=== PATIENT | female | born 1955 | race Caucasian/White ===

== ENCOUNTER 2016-02-16 07:57 | Day surgery (SDC) | payer MEDICARE ==
[2016-02-11 15:28] VITALS: BMI 26.1
[2016-02-16] MEDS: LACTATED RINGERS 1,000 ML IV SCH ×4 (08:05→09:38)
[2016-02-16] MEDS ORDERED: TRIAMCINOLONE ACETONIDE 40 MG/ML 1 ML VIAL ONE (08:39)
[2016-02-16] MEDS ORDERED: BUPIVACAINE (PF) 0.75% 30 ML VIAL ONE (08:39)
[2016-02-16 09:09] VITALS: TEMP 97.8
--- NOTE | 2016-02-16 10:00 | P.PCN ---
Date of Procedure: 02/16/16 Procedure(s) Performed: Preoperative diagnoses= 1-myofascial pain syndrome cervical area. 2-failed back surgery syndrome lumbar area Postoperative diagnoses= same as preoperative diagnosis. Procedure= trigger point injections and cervical paravertebral muscles and suprascapular muscles bilaterally, (total of 9 trigger point injected) Anesthesia= none Estimated blood loss=minimal. Procedure indication= the patient had a history of severe chronic neck pain, diagnosed with myofascial pain syndrome and patient here to have trigger point injections, Procedure description= the patient was seen and identified in the preoperative holding area, risks and benefits and alternative of the procedure and possible complications discussed with the patient, and he agreed with the preceding, patient signed the consent, an IV was started, and vital signs were monitored and were stable throughout the procedure, patient was placed in the sitting position or table and the cervical and shoulder blades area was prepped and draped with a sterile fashion, vital signs were closely monitored during the procedure, then using 25-gauge needles the shoulder trigger point that is identified in the preop holding area, total of 9 triggerpoints 3 on the right side cervical paravertebral muscles, and 5 on the left side cervical paravertebral muscles and left suprascapular muscle, each of the trigger points injected with 2 ml of the mixture , total of 18 ML of Marcaine 0.75% mixed with 40 mg of Kenalog, and 2 mL of the mixture injected ,at each trigger point , after negative aspiration and there was no paresthesia during the injection Patient tolerated the procedure well without any complication, The patient returned to supine position after the neck was cleaned and a Band- Aid applied, the patient transported to recovery room in stable condition and he was monitored for 30 minutes before he was discharged home and then patient was reexamined before going home and patient was discharged in stable condition and patient will follow up with the pain clinic in a few weeks
[2016-02-16] MEDS ORDERED: IV FLUID CONTINUATION 1,000 ML IV ONE (10:20)
[2016-02-16 10:34] VITALS: BP 149/71; PULSE 68; RESP 18
== END 2016-02-16 10:22 | disposition home or self-care (01) ==
LOC: ORPAIN 07:57
PROVIDERS: ATTEND Specialist
DX: M79.1 Myalgia (principal); M96.1 Postlaminectomy syndrome, not elsewhere classified; G89.29 Other chronic pain
CPT/HCPCS: 20553; J3301; 20552

== ENCOUNTER → 2016-03-16 | Day surgery (SDC) | payer MEDICARE ==
[2016-03-09 15:50] VITALS: BMI 27.4
[2016-03-16 12:58] VITALS: BP 153/92; PULSE 72; RESP 16; TEMP 99.2
--- NOTE | 2016-03-16 13:38 | P.PN ---
Progress Note - Text This is a 60-year-old female with an intrathecal Dilaudid pump to treat her chronic mid and lower back pain. The patient's pain has been tolerated with an intrathecal Dilaudid dose of 0.8 mg a day with a combination of clonidine. The patient denies any new neurologic symptoms no neurologic changes in the bowel or bladder functions. She also takes Percocet, Flexeril and for tear in general to help control her pain. She denies any suicidal thoughts she does not look oversedated. I will do a pump refill on her today and we will refill her prescriptions and then we'll see her for reevaluation 3 months from now.
--- NOTE | 2016-03-16 13:41 | P.PCN ---
Date of Procedure: 03/16/16 Preoperative Diagnosis: Chronic mid and lower back pain Near empty intrathecal Dilaudid pump Postoperative Diagnosis: Same as above Procedure(s) Performed: Intrathecal Dilaudid pump refill with reprogramming Anesthesia: none Surgeon: Mary Head Pathology: none sent Condition: stable Disposition: no change Description of Procedure: The patient assumed the supine position the pump was palpated in the right lower abdominal wall and in skin was prepped with DuraPrep and draped in a sterile manner. I then used the [employer] kit to refill the pump. I used 22- gauge [employer] needle to go through the pump port into the pump reservoir and then I aspirated 22 MLS of the residual solution. After that I injected 40 MLS of the new solution with a concentration of 4 mg per mL of Dilaudid and 100 g per mL of clonidine. Intermittent aspirations were done to verify placement of the new solution the pump reservoir and not subcutaneously. The pump was then reprogrammed with the new reservoir volume and to deliver 0.8 mg a day of Dilaudid.
== END ==
LOC: PNWHC3 12:14
PROVIDERS: ATTEND Anesthesiology
DX: Z45.1 Encounter for adjustment and management of infusion pump (principal); G89.29 Other chronic pain; M54.5 Low back pain; M54.89 Other dorsalgia; M48.02 Spinal stenosis, cervical region; M48.06 Spinal stenosis, lumbar region
CPT/HCPCS: 62370; 99211

== ENCOUNTER → 2016-06-08 | Day surgery (SDC) | payer MEDICARE ==
[2016-06-08 12:26] VITALS: BP 165/74; PULSE 67; RESP 18; TEMP 98.4
--- NOTE | 2016-06-09 21:52 | P.PCN ---
Date of Procedure: 06/08/16 Procedure(s) Performed: OPERATION: Intrathecal pain pump analysis, programming and reprogramming, and intrathecal pain pump refill. PREOPERATIVE DIAGNOSES: 1. near empty intrathecal pain pump time for refill. 2. opioid tolerance 3. failed back surgery syndrome lumbar area POSTOPERATIVE DIAGNOSES: 1. near empty intrathecal pain pump time for refill. 2. opioid tolerance 3. failed back surgery syndrome lumbar area ANESTHESIA: None. CONDITION: Stable. Description of the procedure; Intrathecal pain pump analysed ,it showed patient currently had reservoir volume[22 ] mL. The patient is receiving medication Dilaudid concentration 4 mg per mL, and clonidine concentration 100 g per mL Patient receiving daily dose of Dilaudid 0.7 mg/day and clonidine 17.5 g/day. Pain is well controlled , patient using medication for breakthrough pain is at 7.5/325 every 6 hours And she is also on Flexeril 10 mg 3 times a day and Neurontin 300 mg every 8 hours The location of the pump right lower quadrant abdominal area Prepped with chlorhexidine x3 , then using 22-gauge needle [employer] kit advanced through the pump port, Total of 22 ml removed from the pump, the pump refills with the new medication total volume [40 ] ml . The concentration of Dilaudid for mg /ml , and clonidine 100 g/ml. The patient will continue to see the daily dose of Dilaudid 0.7 mg/day and clonidine 17.5/day and patient will follow up with the pain clinic in 3 months [place] given prescription for Percocet 7.5/325 every 6 hours dispensed 120 with 2 refills , and Neurontin 400 mg 3 times a day dispense 90 with 2 refills, Flexeril 10 mg 3 times a day dispense 90 with 2 refills.
== END ==
LOC: PNWHC3 11:50
PROVIDERS: ATTEND Specialist
DX: Z45.1 Encounter for adjustment and management of infusion pump (principal); M96.1 Postlaminectomy syndrome, not elsewhere classified; Z79.891 Long term (current) use of opiate analgesic; Z79.899 Other long term (current) drug therapy
CPT/HCPCS: 62370

== ENCOUNTER 2016-06-27 21:01 | Emergency (ER) | payer MEDICARE ==
[2016-06-27 21:22] VITALS: RESP 16
--- NOTE | 2016-06-27 21:35 | ED ---
General Adult HPI - General Chief complaint: Fall Stated complaint: swelling in foot & leg Time Seen by Provider: 06/27/16 21:15 Source: patient, RN notes reviewed Mode of arrival: ambulatory Limitations: no limitations - History of Present Illness Initial comments: This is a 61-year-old female who presents to the emergency department stating she fell out of bed and ever since she's had swelling on her left leg from the knee down and she has some pain behind the knee. Patient states she has full range of motion of the knee and ankle and foot there is no tenderness of the ankle or foot. Patient states she is on a laxative because she has had some clotting in her arteries in the past. She's needed a stent placement in the past. Patient states her left leg is more swollen than the right and that is typical. Patient states she had someone check for pulses in her foot and they couldn't find him. She came to the emergency department. Patient states the color is normal but it is more swollen than normal. Patient points to the pain right behind her knee she has no bony tenderness. Patient denies any chest pain difficulty breathing shortness of breath. - Related Data Home Medications Medication Instructions Recorded Confirmed Ascorbic Acid [Vitamin C] 500 mg PO DAILY 08/14/14 06/27/16 Aspirin 81 mg PO HS 08/14/14 06/27/16 Calcium Carbonate [Calcium] 600 mg PO BID 08/14/14 06/27/16 Cholecalciferol [Vitamin D3] 5,000 unit PO BID 08/14/14 06/27/16 Dabigatran [Pradaxa] 150 mg PO BID 08/14/14 06/27/16 Fenofibrate 160 mg PO DAILY 08/14/14 06/27/16 Hydroxychloroquine Sulfate 200 mg PO BID 08/14/14 06/27/16 [Plaquenil] Levothyroxine Sodium [Synthroid] 50 mcg PO DAILY 08/14/14 06/27/16 Metoprolol Tartrate [Lopressor] 50 mg PO BID 08/14/14 06/27/16 Multivit with Calcium,Iron,Min 1 tab PO DAILY 08/14/14 06/27/16 [Women's Daily Multivitamin] Niacin 500 mg PO HS 08/14/14 06/27/16 Omeprazole [PriLOSEC] 20 mg PO DAILY 08/14/14 06/27/16 Oxybutynin Chloride [Oxybutynin 7.5 mg PO QID 08/14/14 06/27/16 Chloride ER] Simethicone [Gas-X] 125 mg PO BID 08/14/14 06/27/16 Womans Laxative 1 tab PO Q48H PRN 08/14/14 06/27/16 cloNIDine HCL [Catapres] 0.2 mg PO HS 08/14/14 06/27/16 clonazePAM [KlonoPIN] 0.5 mg PO HS 08/14/14 06/27/16 diphenhydrAMINE [Benadryl] 50 mg PO HS PRN 08/14/14 06/27/16 Diphenox-Atrop 2.5-0.025 mg 1 tab PO QID PRN 10/21/14 06/27/16 [Lomotil] Docusate [Colace] 100 mg PO HS 10/21/14 06/27/16 Pramipexole [Mirapex] 0.25 - 0.5 mg PO HS 10/21/14 06/27/16 Atorvastatin [Lipitor] 10 mg PO HS 06/27/16 06/27/16 Ciclopirox 8% Solution 1 applic TOPICAL HS 06/27/16 06/27/16 Demerol/Clonidine Pain Pump 1 dose SQ CONTINUOUS 06/27/16 06/27/16 Gabapentin [Neurontin] 100 mg PO BID 06/27/16 06/27/16 Gabapentin [Neurontin] 600 mg PO Q6H 06/27/16 06/27/16 oxyCODONE-APAP 7.5-325MG [Percocet 1 tab PO Q6HR PRN 06/27/16 06/27/16 7.5-325 mg] Previous Rx's Medication Instructions Recorded Diclofenac Sodium Gel [Voltaren 4 gm TOPICAL TID PRN #1 tube 12/23/15 Gel] Cyclobenzaprine [Flexeril] 10 mg PO TID #90 tab 06/08/16 Allergies Allergy/AdvReac Type Severity Reaction Status Date / Time latex Allergy Rash/Hives Verified 06/27/16 21:37 Milk Containing Products Allergy Diarrhea Verified 06/27/16 21:37 morphine Allergy Rash/Hives Verified 06/27/16 21:37 paroxetine HCl [From Paxil] Allergy crying Verified 06/27/16 21:37 Review of Systems ROS Statement: Those systems with pertinent positive or pertinent negative responses have been documented in the HPI. ROS Other: All systems not noted in ROS Statement are negative. Past Medical History Past Medical History: Blood Disorder, COPD, Deep Vein Thrombosis (DVT), Eye Disorder, GERD/Reflux, Hearing Disorder / Deafness, Hyperlipidemia, Hypertension , Thyroid Disorder, Vascular Disorder Additional Past Medical History / Comment(s): lupus,factor V-liden, Protein C strain MPHFR, stress incontinence, BACK PAIN-HAS A PAIN PUMP-REFILLS EVERY 3 MONTHS, HX RAYNAUD'S,HX DVT LT LEG 2001 & 2007- has numbness tingling & burning in [place]. feet.Glasses daily use, [place]. - wears aids in both History of Any Multi-Drug Resistant Organisms: None Reported Past Surgical History: Cholecystectomy, Hysterectomy, Orthopedic Surgery Additional Past Surgical History / Comment(s): repair hepatic artery aneurysm 2007, femoral popliteal bypass with femoral tibial insitu graph, PAIN PUMP, SX ON LEFT TOES, Pain Clinic procedures, stents to rt. leg due no circulation to foot Past Anesthesia/Blood Transfusion Reactions: Motion Sickness Past Psychological History: Anxiety, Depression Smoking Status: Former smoker Past Alcohol Use History: Rare Past Drug Use History: None Reported - Past Family History Mother Family Medical History: Cancer, Hyperlipidemia, Hypertension Father Family Medical History: Hypertension General Exam - General Exam Comments Initial Comments: GENERAL: Patient is well-developed and well-nourished. Patient is nontoxic and well- hydrated and is in mild distress. ENT: Neck is soft and supple. No significant lymphadenopathy is noted. Oropharynx is clear. Moist mucous membranes. Neck has full range of motion without eliciting any pain. EYES: The sclera were anicteric and conjunctiva were pink and moist. Extraocular movements were intact and pupils were equal round and reactive to light. Eyelids were unremarkable. PULMONARY: Unlabored respirations. Good breath sounds bilaterally. No audible rales rhonchi or wheezing was noted. CARDIOVASCULAR: There is a regular rate and rhythm without any murmurs gallops or rubs. ABDOMEN: Soft and nontender with normal bowel sounds. No palpable organomegaly was noted. There is no palpable pulsatile mass. SKIN: Skin is clear with no lesions or rashes and otherwise unremarkable. NEUROLOGIC: Patient is alert and oriented x3. Cranial nerves II through XII are grossly intact. Motor and sensory are also intact. Normal speech, volume and content. Symmetrical smile. MUSCULOSKELETAL: Patient's left leg is slightly more edematous than the right patient states this is abnormal. Patient has 1+ edema on the left leg. Patient has good DP pulses on the left and capillary refill is normal and equal to the right. LYMPHATICS: No significant lymphadenopathy is noted PSYCHIATRIC: Normal psychiatric evaluation. Limitations: no limitations Course Vital Signs 06/27/16 06/27/16 06/27/16 21:18 22:06 23:11 Temperature 98.4 F 99.5 F Pulse Rate 98 86 86 Respiratory 16 16 16 Rate Blood Pressure 187/83 182/75 184/80 O2 Sat by Pulse 96 98 94 L Oximetry Medical Decision Making - Medical Decision Making Ultrasound showed no DVT. X-ray of the knee showed no acute fracture. Disposition Clinical Impression: Muscle strain, lower leg Disposition: HOME SELF-CARE Instructions: Muscle Strain (ED) Referrals: Buster Broderick MD [Primary Care Provider] - 1-2 days Time of Disposition: 23:13
--- NOTE | 2016-06-27 21:45 | XR ---
EXAMINATION TYPE: XR knee complete LT DATE OF EXAM: 06/27/2016 9:41 PM COMPARISON: NONE HISTORY: Pain TECHNIQUE: 3 views FINDINGS: There are numerous surgical clips. There is spurring of the femoral and tibial condyles. Th ere is spurring of the patella. There is no sign of joint effusion. IMPRESSION: Moderate hypertrophic osteoarthritis. No fracture seen.
[2016-06-27 22:11] VITALS: PULSE 86; TEMP 99.5
--- NOTE | 2016-06-27 23:00 | US ---
CLINICAL HISTORY: Pain. Patient states history of DVT left leg 2001. States history of vein stripping. Fell down, swollen, painful left leg. Currently taking blood thinners TECHNIQUE: Real-time imaging of the left common femoral, superficial femoral and popliteal veins is performed utilizing intermittent compression. The study is supplemented with color flow imaging and duplex Doppler during spontaneous flow and calf augmentation. COMPARISON: None available FINDINGS: Normal compressibility is demonstrated from the common femoral vein to the popliteal vein. There is normal response to augmentation. Normal spontaneous phasic flow is noted. IMPRESSION: No evidence of deep venous thrombosis in the left lower extremity.
[2016-06-27 23:12] VITALS: BP 184/80
== END 2016-06-27 23:24 | disposition home or self-care (01) ==
LOC: EC 21:01
DX: S86.912A Strain of unspecified muscle(s) and tendon(s) at lower leg level, left leg, initial encounter (principal); K21.9 Gastro-esophageal reflux disease without esophagitis; E78.5 Hyperlipidemia, unspecified; I10 Essential (primary) hypertension; E07.9 Disorder of thyroid, unspecified; F32.9 Major depressive disorder, single episode, unspecified; F41.9 Anxiety disorder, unspecified; Z87.891 Personal history of nicotine dependence; Z79.82 Long term (current) use of aspirin; Z79.899 Other long term (current) drug therapy; Z91.040 Latex allergy status; Z91.011 Allergy to milk products; Z88.5 Allergy status to narcotic agent; Z88.8 Allergy status to other drugs, medicaments and biological substances; W06.XXXA Fall from bed, initial encounter; Y92.009 Unspecified place in unspecified non-institutional (private) residence as the place of occurrence of the external cause; H91.90 Unspecified hearing loss, unspecified ear
CPT/HCPCS: 99284

== ENCOUNTER → 2016-08-25 | Outpatient (CLI) | payer MEDICARE ==
--- NOTE | 2016-08-26 08:58 | MM ---
Reason for exam: screening (asymptomatic). Last mammogram was performed 1 year ago. History: Patient is postmenopausal and has history of endometrial cancer at age 28. Family history of breast cancer in maternal aunt and breast cancer in cousin. Took hormonal contraceptives for 11 years beginning at age 15. Physical Findings: A clinical breast exam by your physician is recommended on an annual basis and results should be correlated with mammographic findings. MG 3D Screening Mammo W/Cad Bilateral CC and MLO view(s) were taken. Prior study comparison: August 25, 2015, bilateral MG screening mammo w CAD. September 20, 2011, bilateral digital screening mammo w/CAD. There are scattered fibroglandular densities. There is no discrete abnormality. No significant changes when compared with prior studies. ASSESSMENT: Negative, BI-RAD 1 RECOMMENDATION: Routine screening mammogram of both breasts in 1 year.
== END | disposition home or self-care (01) ==
LOC: RADMAMWWP 08:15
PROVIDERS: ATTEND Internal Medicine
DX: Z12.31 Encounter for screening mammogram for malignant neoplasm of breast (principal)
CPT/HCPCS: 77063; G0202

== ENCOUNTER → 2016-08-25 | Outpatient (CLI) | payer MEDICARE ==
[2016-08-25 08:38] LABS: Aty Lym Flag Slight; CH 28.8; CHCM 32.3; HCT 41.7 % (34.0-46.0); HDW 2.85; HGB 13.7 gm/dL (11.4-16.0); MCH 29.4 pg (25.0-35.0); MCHC 32.8 g/dL (31.0-37.0); MCV 89.6 fL (80.0-100.0); Mean Platelet Volume 6.5; RBC 4.66 m/uL (3.80-5.40); RDW 13.9 % (11.5-15.5); WBC 6.2 k/uL (3.8-10.6); WBC (Perox) 6.53
[2016-08-25 09:10] LABS: ALT 56 U/L (9-52); AST 25 U/L (14-36); Alkaline Phosphatase 70 U/L (38-126); Anion Gap 10 mmol/L; Blood Urea Nitrogen 16 mg/dL (7-17); Calcium 9.2 mg/dL (8.4-10.2); Carbon Dioxide 27 mmol/L (22-30); Chloride 109 mmol/L (98-107); Cholesterol 127 mg/dL (<200); Glucose 88 mg/dL (74-99); HDL Cholesterol 39 mg/dL (40-60); Non-African American GFR(MDRD) >60 (>60 ml/min/1.73 sqM); Potassium 4.5 mmol/L (3.5-5.1); Sodium 146 mmol/L (137-145); Total Bilirubin 0.2 mg/dL (0.2-1.3); Total Protein 6.1 g/dL (6.3-8.2); Triglycerides 122 mg/dL (<150)
[2016-08-25 09:50] LABS: Add Differential Manual Differential
[2016-08-25 09:52] LABS: Manual Review Performed; Nucleated Red Blood Cells 0 /100 WBC (0-0); Total Cells Counted 100
== END | disposition home or self-care (01) ==
LOC: LABWHC1 08:08
PROVIDERS: ATTEND Internal Medicine
DX: E78.2 Mixed hyperlipidemia (principal); E55.9 Vitamin D deficiency, unspecified; I10 Essential (primary) hypertension; R53.83 Other fatigue
CPT/HCPCS: 36415; 80053; 80061; 82306; 84443; 85025

== ENCOUNTER → 2016-09-13 | Day surgery (SDC) | payer MEDICARE ==
[2016-09-06 14:37] VITALS: BMI 28.3
[2016-09-13 11:55] VITALS: BP 139/79; PULSE 67; RESP 16; TEMP 97.2
--- NOTE | 2016-09-13 13:03 | P.PN ---
Progress Note - Text This is a 61-year-old female with history of lumbar and thoracic spondylosis and mid and lower back pain. She has intrathecal Dilaudid infusion pump. The patient has been going through a dry socket to both syndrome in her mouth and has been using more of her oral Percocets. Her pump is almost empty and we will refill it today. I will increase her Percocet dose to a maximum of 5 pills a day just for 1 month and we will go down to 4 a day after that. The patient denies any new neurologic symptoms in her lower extremities, however she feels numbness in the right hand for the last week or so. The patient denies any new pain in her neck or lower extremities or any numbness in the right arm. Her right hand numbness continued to be a problem then I might need to do some testing including EMG and cervical spine MRI. For now we will just observe that.
--- NOTE | 2016-09-13 13:12 | P.PCN ---
Date of Procedure: 09/13/16 Preoperative Diagnosis: Postoperative Diagnosis: Procedure(s) Performed: Implants: Anesthesia: none Surgeon: Mary Head Indications for Procedure: Operative Findings: Description of Procedure: OPERATION: Intrathecal pain pump analysis, programming and reprogramming, and intrathecal pain pump refill. PREOPERATIVE DIAGNOSES: 1. near empty intrathecal pain pump time for refill. 2. opioid tolerance 3. failed back surgery syndrome lumbar area POSTOPERATIVE DIAGNOSES: 1. near empty intrathecal pain pump time for refill. 2. opioid tolerance 3. failed back surgery syndrome lumbar area ANESTHESIA: None. CONDITION: Stable. Description of the procedure; Intrathecal pain pump analysed ,it showed patient currently had reservoir volume[19 ] mL. The patient is receiving medication Dilaudid concentration 4 mg per mL, and clonidine concentration 100 g per mL Patient receiving daily dose of Dilaudid 0.8 mg/day and clonidine 17.5 g/day. Pain is well controlled , patient using medication for breakthrough pain is at 7.5/325 every 6 hours And she is also on Flexeril 10 mg 3 times a day and Neurontin 300 mg every 8 hours The location of the pump right lower quadrant abdominal area Prepped with chlorhexidine x3 , then using 22-gauge needle [employer] kit advanced through the pump port, Total of 20 ml removed from the pump, the pump refills with the new medication total volume [40 ] ml . The concentration of Dilaudid 4 mg /ml , and clonidine 100 g/ml. The patient will continue to see the daily dose of Dilaudid 0.8 mg/day and clonidine 17.5/day and patient will follow up with the pain clinic in 3 months
== END ==
LOC: PNWHC3 11:19
PROVIDERS: ATTEND Anesthesiology
DX: M96.1 Postlaminectomy syndrome, not elsewhere classified (principal); M47.816 Spondylosis without myelopathy or radiculopathy, lumbar region; M47.814 Spondylosis without myelopathy or radiculopathy, thoracic region; Z79.891 Long term (current) use of opiate analgesic
CPT/HCPCS: 62370

== ENCOUNTER → 2017-03-01 | Day surgery (SDC) | payer MEDICARE ==
[2017-02-23 12:53] VITALS: BMI 29.5
[2017-03-01 12:30] VITALS: BP 183/98; PULSE 80; RESP 18; TEMP 98.2
--- NOTE | 2017-03-01 12:52 | P.PN ---
Progress Note - Text Progress Note Date: 03/01/17 PROCEDURE: Intrathecal pain pump analysis, programming and reprogramming, and intrathecal pain pump refill. PREOPERATIVE DIAGNOSES: 1. near empty intrathecal pain pump time for refill. 2. opioid tolerance 3. PLPS POSTOPERATIVE DIAGNOSES: 1. near empty intrathecal pain pump time for refill. 2. opioid tolerance 3. PLPS ANESTHESIA: None. CONDITION: Stable. INDICATION: This is a 61-year-old patient with a long history of chronic pain secondary to lumbar PLPS. Patient previously had an intrathecal pump placed, which is now close to empty, and patient presents for refill today. Patient denies any side effects of the intrathecal medication, including new weakness, new numbness, excessive drowsiness or sleepiness, nausea/vomiting, weight gain, or night sweats. Patient also denies suicidal ideation, and reports that the current pain medication is helping control the chronic pain and improve the patient's activities of daily living. DESCRIPTION: The intrathecal pain pump was analyzed and showed that the patient currently has reservoir volume of [30.7] mL. The patient is receiving intrathecal hydromorphone at concentration [4] mg/ ml, and clonidine PF at concentration [100] mcg/ml. Upon interrogation, pump stoppage and FERCHO was noted in January 2017. The location of the pump (left buttock) was prepped with chlorhexidine x3. Then , the 22-gauge needle from the [email or web address] kit was advanced through the pump port. Total of [31] ml was removed from the pump, and it was refilled with the new medication total volume of [10] ml of a solution containing 0.9% NS. Pump was then turned off. I will start the patient on fentanyl patch 50 mcg/hr q72h and continue Percocet 7.5/325 mg q6 hours prn pain (#120) orally for breakthrough pain, Flexeril, Voltaren gel, and gabapentin. The patient was given one month's worth of these medications and patient will follow up for surgical intrathecal pump replacement within the next four weeks.
== END ==
LOC: PNWHC3 11:36
PROVIDERS: ATTEND Anesthesiology
DX: M96.1 Postlaminectomy syndrome, not elsewhere classified (principal); Z45.1 Encounter for adjustment and management of infusion pump; Z79.891 Long term (current) use of opiate analgesic
CPT/HCPCS: 62370

== ENCOUNTER 2017-03-21 11:09 | Day surgery (SDC) | payer MEDICARE ==
[~2017-03-21 11:09] MED LIST: LACTATED RINGERS 1,000 ML IV SCH; ceFAZolin 1,000 MG in DEXTROSE/WATER 1 50ML.BAG IVPB STA
[2017-03-21] MEDS ORDERED: LIDOCAINE 1% 20 ML VIAL (10MG/ML) FOR IV START INTRADERMA ONE (11:20)
[2017-03-21] MEDS ORDERED: DEXAMETHASONE SOD PHOSPHATE 10 MG/ML 1 ML VIAL IV ONE (11:52)
[2017-03-21] MEDS ORDERED: ONDANSETRON 4 MG/2 ML VIAL IVP ONE (11:53)
[2017-03-21 11:55] LABS: Glucose,Whole Blood 105 mg/dL (75-99)
[2017-03-21] MEDS ORDERED: LIDOCAINE 1% INJ 10MG/ML (20 ML MDV) ONE ×2 (13:01)
[2017-03-21] MEDS ORDERED: MIDAZOLAM 2 MG/2 ML VIAL ONE ×2 (13:01)
[2017-03-21] MEDS ORDERED: fentaNYL (PF) 50 MCG/ML 2 ML AMP ONE ×2 (13:01)
[2017-03-21] MEDS ORDERED: PROPOFOL 10 MG/ML 20 ML VIAL IV ONE ×2 (13:01)
[2017-03-21] MEDS ORDERED: SUCCINYLCHOLINE CHLORIDE 100 MG/5 ML SYR IV ONE ×2 (13:01)
[2017-03-21] MEDS ORDERED: LIDOCAINE 2%-EPI 1:100,000 20 ML VIAL SQ ONE (13:37)
[2017-03-21] MEDS ORDERED: BUPIVACAINE (PF) 0.5% 30 ML VIAL SQ ONE (14:00)
--- NOTE | 2017-03-21 14:17 | P.OP ---
Date of Procedure: 03/21/17 Preoperative Diagnosis: intrathecal pump end-of-life Postoperative Diagnosis: intrathecal pump end-of-life Procedure(s) Performed: intrathecal pump replacement Implants: 20 ml Medtronic SynchroMed II pump Anesthesia: DANYELLE Surgeon: Sherif Willson Estimated Blood Loss (ml): 10 Pathology: none sent Condition: stable Disposition: PACU Indications for Procedure: Ms. Carbajal is a 61-year-old female with a history of postlaminectomy syndrome and severe chronic pain secondary to this condition. Patient's intrathecal pump has reached end of life and is no longer functional. Patient presents for replacement of pump today. Description of Procedure: The patient was seen and identified in the preoperative area. Risks, benefits, complications, and alternatives were discussed with the patient (including but not limited to incomplete pain relief, failure of the pump to work, inadvertent damage to the intrathecal catheter, bleeding, infection, nerve damage, and allergic reactions to anesthetics and other medications), and the patient agreed to proceed with the procedure and signed the consent after all questions were answered. Patient has been off Pradaxa for 10 (ten) days. The location of the in situ pump was palpated in the right abdomen and was marked preoperatively. The patient was taken to the operating room and placed under general endotracheal anesthesia by the anesthesia team and 1 g of cefazolin was administered. The patient was then moved into a supine position on the operating table and all pressure points were padded and checked with assistance of the anesthesia and operating room staff. The skin area over the pump in the left buttock was sterilely prepped with ChloraPrep 3 and draped in the usual sterile fashion. The previous transverse incision over the pump pocket was noted. After localization with 10 ml of combination of 2% lidocaine with epinephrine 1:200, 000 with 0.5% bupivacaine with epinephrine 1:200,000, a 8-9 cm transverse incision was made over the previous incision. Electrocautery was used to dissect down to the level of the 40 ml intrathecal pump, and the intrathecal catheter was avoided as soon as it could be visualized. The pump was already disconnected from the retention sutures and was removed from the pocket without difficulty. At this point, the pump was cleaned and disconnected from the intrathecal catheter sutureless connector. The intrathecal catheter was noted in the pump pocket to be grossly intact. Once the pump was disconnected, there was free flow cerebrospinal fluid after aspiration. The pump pocket was irrigated copiously with sterile saline combined with cefazolin irrigation. The new Medtronic 20 mL SynchroMed II intrathecal pump (40 ml device unavailable) was introduced sterilely onto the field and the sterile water inside the pump was aspirated by the implementation technician. The new compounded solution containing hydromorphone (4 mg/ml) and clonidine (100 mcg/ml) was then used to fill the intrathecal pump. The new pump was then attached again to the catheter via the sutureless connector. Retention sutures were placed in the pump pocket in two distal locations. Aspiration at the side port demonstrated positive backflow of cerebrospinal fluid. The pump pocket was again copiously irrigated and the pump was replaced with the side port facing laterally at approximately the 9 o'clock position. The intrathecal catheter was carefully tucked underneath the pump to avoid injury during closure. Using a three layer closure, the deeper tissue was closed with 0 Vicryl interrupted sutures, a running 3-0 Monocryl subcuticular layer, and the skin with another running 3-0 Monocryl stitch. Between each stitch, care was taken to examine that the catheter was not caught in or compressed by any of the stitches. 10 ml of 0.5% bupivacaine plain solution was injected around the incision. The area was thoroughly cleaned and dressed with Steri-Strips, sterile gauze, and Tegaderm. DISPOSITION: After the procedure was completed, the patient was turned back over into a supine position and awakened by the anesthesia team. She tolerated the procedure well and was taken to the recovery room where she had an uneventful course and was discharged home after evaluation revealed no weakness or other issues, and also after appropriate instructions were given to the patient and her (including to discontinue her fentanyl patch). The patient was prescribed Percocet 7.5/325 mg #120 as a continuation of her previous dose and for postoperative pain and was specifically instructed to use Percocet up to every 4 hours as needed until her next visit. She was also given a prescription for Levaquin 750 mg daily with a 14 day supply. She will follow-up in approximately 1-2 weeks for evaluation of her wound and escalation of her intrathecal pump dose, which is currently at hydromorphone 0.5 mg/day and clonidine 12.5 mcg/day.
[2017-03-21 14:30] VITALS: TEMP 97.8
[2017-03-21 15:27] VITALS: PULSE 83; RESP 16
[2017-03-21] MEDS ORDERED: oxyCODONE-APAP 7.5-325MG 1 EACH TAB PO ONE (15:30)
[2017-03-21 15:35] VITALS: BP 169/78
== END 2017-03-21 15:56 | disposition home or self-care (01) ==
LOC: OR 11:09
PROVIDERS: ATTEND Anesthesiology
DX: Z45.49 Encounter for adjustment and management of other implanted nervous system device (principal); G89.29 Other chronic pain; M96.1 Postlaminectomy syndrome, not elsewhere classified; G62.9 Polyneuropathy, unspecified; I10 Essential (primary) hypertension; E78.5 Hyperlipidemia, unspecified; F41.9 Anxiety disorder, unspecified; I73.00 Raynaud's syndrome without gangrene; J44.9 Chronic obstructive pulmonary disease, unspecified; Z87.891 Personal history of nicotine dependence; E07.9 Disorder of thyroid, unspecified; H91.90 Unspecified hearing loss, unspecified ear; K21.9 Gastro-esophageal reflux disease without esophagitis; Z79.02 Long term (current) use of antithrombotics/antiplatelets; Z88.5 Allergy status to narcotic agent; Z88.8 Allergy status to other drugs, medicaments and biological substances; Z91.040 Latex allergy status; Z91.011 Allergy to milk products
CPT/HCPCS: 62350; 62362; J2250; J1100; J2405; J2001; J3010; J0330; J2704

== ENCOUNTER → 2017-04-04 | Outpatient (CLI) | payer MEDICARE ==
[2017-04-04 11:52] VITALS: BP 184/119; PULSE 90; RESP 18
--- NOTE | 2017-04-04 12:30 | P.PN ---
Progress Note - Text Progress Note Date: 04/04/17 PROCEDURE: Intrathecal pain pump analysis, programming and reprogramming PREOPERATIVE DIAGNOSES: 1. lumbar PLPS POSTOPERATIVE DIAGNOSES: same CONDITION: Stable. INDICATION: This is a 61-year-old patient with a long history of chronic pain secondary to lumbar PLPS. Patient previously had an intrathecal pump placed two weeks ago and dose was reduced secondary to concern for overdose as pump had been nonfunctional for several weeks. Patient has had severe pain all over since dose was lowered and is requesting increase back to previous dose; I am concerned for mild opioid withdrawal at this time and will plan to increase. DESCRIPTION: The intrathecal pain pump was analyzed and showed that the patient currently has reservoir volume of [17.9] mL. The patient is receiving intrathecal hydromorphone at concentration [4] mg/ ml, and clonidine PF at concentration [100] mcg/ml. Patient receiving daily dose of Dilaudid [0.5] mg/day and clonidine [12.5] mcg /day. Today, we will increase the daily dose to hydromorphone [0.75] mg/day and clonidine [18.73] mg/day. The patient is using some oral medications as well, specifically Percocet 7.5/ 325 mg q6 hours prn pain (#120) orally for breakthrough pain, Flexeril, Voltaren gel, and topical cream containing meloxicam 0.009%, topiramate 1%, lidocaine/prilocaine both 1.9%. The patient has enough of these medications for now, and will follow up in 4 weeks for further evaluation and/or pump adjustment.
== END | disposition home or self-care (01) ==
LOC: PNWHC3 11:24
PROVIDERS: ATTEND Anesthesiology
DX: G89.29 Other chronic pain (principal); G97.1 Other reaction to spinal and lumbar puncture; Z79.891 Long term (current) use of opiate analgesic; Z79.899 Other long term (current) drug therapy
CPT/HCPCS: 99211

== ENCOUNTER → 2017-05-15 | Outpatient (CLI) | payer MEDICARE ==
[2017-05-15 12:03] VITALS: BP 186/109; PULSE 80; RESP 16
--- NOTE | 2017-05-15 12:49 | P.PN ---
Subjective Progress Note Date: 05/15/17 Principal diagnosis: Lumbar degenerative disc disease, Chronic Pain Syndrome, Opioid Dependency Principal diagnosis: Chronic Pain Syndrome, This is a follow-up visit for this patient with a history of chronic severe low midback pain and low back pain, and she had intrathecal pain pump implanted several years ago at [facility]. She was recently seen 2 months ago and pump was adjusted. Patient states that pain is better controlled after the adjustment. She has dilaudid 4mg/ml, Clonidine 100.0mcg/ ml and currently at a dose of 0.7491mg/day of dilaudid. Pain is a 6/10 in severity along her entire spine. Current pain medication Percocet 7.5/325 every 6 hours when necessary for pain and the Flexeril 10 mg half a tablet every morning and half a tablet p.m. and 1 tablet by mouth daily at bedtime and Voltaran gel. Tolerating medications well, She requires the opiates for improvement of ADL which include taking care of her kids, cooking, walking. Objective - Vital Signs Vital signs: Vital Signs Temp Pulse 80 05/15/17 11:45 Resp 16 05/15/17 11:45 BP 186/109 05/15/17 11:45 Pulse Ox Intake & Output 05/14/17 05/15/17 05/15/17 18:59 06:59 18:59 Weight 78.018 kg - Constitutional General appearance: Present: no acute distress - EENT Eyes: Present: normal appearance ENT: Present: hearing grossly normal - Respiratory Respiratory: bilateral: CTA - Cardiovascular Rhythm: regular - Neurologic Neurologic: Present: CNII-XII intact (+Facet Loading bilaterl, +TTP paraspinal musculature,reduced flexion/extension of lumbar spine. ) - Musculoskeletal Musculoskeletal: Present: gait normal, generalized weakness - Psychiatric Psychiatric: Present: A&O x's 3, appropriate affect, intact judgment & insight Assessment and Plan Assessment: 1. Refill medications x 4 weeks. 2. MAPS approp. UDS must be done next visit. 3. Return to clinic in 4 weeks for pump refill, alarm date is 06/27/2017. Patient knows that pump will run out of medication by that time and could possibly fo through opioid withdrawl.
== END | disposition home or self-care (01) ==
LOC: PNWHC3 11:26
PROVIDERS: ATTEND Anesthesiology
DX: G89.4 Chronic pain syndrome (principal); M51.36 Other intervertebral disc degeneration, lumbar region; Z79.899 Other long term (current) drug therapy; Z79.891 Long term (current) use of opiate analgesic
CPT/HCPCS: 99211

== ENCOUNTER → 2017-06-14 | Day surgery (SDC) | payer MEDICARE ==
[2017-06-14 13:15] VITALS: BP 161/90; PULSE 78; RESP 18
--- NOTE | 2017-06-14 16:12 | P.PCN ---
Date of Procedure: 06/14/17 Preoperative Diagnosis: PROCEDURE: Intrathecal pain pump analysis, programming and reprogramming PREOPERATIVE DIAGNOSES: 1. lumbar PLPS POSTOPERATIVE DIAGNOSES: same CONDITION: Stable. INDICATION: This is a 61-year-old patient with a long history of chronic pain secondary to lumbar PLPS. Patient previously had an intrathecal pump placed two weeks ago and dose was reduced secondary to concern for overdose as pump had been nonfunctional for several weeks. Patient has had severe pain all over since dose was lowered and is requesting increase back to previous dose; I am concerned for mild opioid withdrawal at this time and will plan to increase. DESCRIPTION: The intrathecal pain pump was analyzed and showed that the patient currently has reservoir volume of [ 4.7] mL. The patient is receiving intrathecal hydromorphone at concentration [4] mg/ ml, and clonidine PF at concentration [100] mcg/ml. Patient receiving daily dose of Dilaudid [0.74] mg/day and clonidine [18.7] mcg/day. Today, we will increase the daily dose to hydromorphone [0.84] mg/day and clonidine [21 ] mg/day.( 13 % increase ) The patient is using some oral medications as well, specifically Percocet 7.5/ 325 mg q6 hours prn pain (#120) orally for breakthrough pain, Follow up in 3 months
== END ==
LOC: PNWHC3 11:51
PROVIDERS: ATTEND Specialist
DX: Z45.49 Encounter for adjustment and management of other implanted nervous system device (principal); G89.29 Other chronic pain; G54.6 Phantom limb syndrome with pain; M48.02 Spinal stenosis, cervical region; M48.061 Spinal stenosis, lumbar region without neurogenic claudication; Z79.891 Long term (current) use of opiate analgesic
CPT/HCPCS: 62370; 80356

== ENCOUNTER → 2017-08-28 | Outpatient (CLI) | payer MEDICARE ==
--- NOTE | 2017-08-29 13:41 | MM ---
Reason for exam: screening (asymptomatic). Last mammogram was performed 1 year ago. History: Patient is postmenopausal and has history of endometrial cancer at age 28. Family history of breast cancer in maternal aunt and breast cancer in cousin. Took hormonal contraceptives for 11 years beginning at age 15. Physical Findings: A clinical breast exam by your physician is recommended on an annual basis and results should be correlated with mammographic findings. MG Screening Mammo w CAD Bilateral CC and MLO view(s) were taken. Prior study comparison: August 25, 2016, bilateral MG 3d screening mammo w/cad. August 25, 2015, bilateral MG screening mammo w CAD. There are scattered fibroglandular densities. Stable benign calcifications. There is no discrete abnormality. No significant changes when compared with prior studies. ASSESSMENT: Benign, BI-RAD 2 RECOMMENDATION: Routine screening mammogram of both breasts in 1 year.
== END | disposition home or self-care (01) ==
LOC: RADMAMWWP 09:57
PROVIDERS: ATTEND Obstetrics & Gynecology
DX: Z12.31 Encounter for screening mammogram for malignant neoplasm of breast (principal)
CPT/HCPCS: 77067

== ENCOUNTER → 2017-08-30 | Day surgery (SDC) | payer MEDICARE ==
[2017-08-30 12:57] VITALS: BP 198/96; RESP 16
--- NOTE | 2017-08-30 14:30 | P.PCN ---
Date of Procedure: 08/30/17 Description of Procedure: Date of Procedure: 06/14/17 Preoperative Diagnosis: PROCEDURE: Intrathecal pain pump analysis, programming and reprogramming PREOPERATIVE DIAGNOSES: 1. lumbar postlaminectomy pain syndrome POSTOPERATIVE DIAGNOSES: 1. Postlaminectomy pain syndrome CONDITION: Stable. INDICATION: This is a 61-year-old patient with a long history of chronic pain secondary to lumbar PLPS. Patient is tolerating her pump dose. When refilling the pump, I noted that there was some clear serosanguineous fluid after needle puncture her was in the room said he noted the same thing on her shirt a few days prior I informed her that if she noted any inflamed scan, or erythema or processing to go to the emergency department is acutely infected. There is no palpitations to filling intrathecal pump. I injected and aspirated 5 ML's and all the volume was returned and clear.For every 10 ML that I injected , I withdrew 5 ML's. DESCRIPTION: The intrathecal pain pump was analyzed and showed that the patient currently has reservoir volume of [ 3] mL. The patient is receiving intrathecal hydromorphone at concentration [4] mg/ ml, and clonidine PF at concentration [100] mcg/ml. Patient receiving daily dose of Dilaudid [0.74] mg/day and clonidine [18.7] mcg/day. Daily dose of hydromorphone [0.84] mg/day and clonidine [21 ] mg/day The patient is using some oral medications as well, specifically Percocet 7.5/ 325 mg q6 hours prn pain (#120) orally for breakthrough pain, Follow up in 3 months
== END | disposition home or self-care (01) ==
LOC: PNWHC3 11:49
PROVIDERS: ATTEND Anesthesiology
DX: Z45.1 Encounter for adjustment and management of infusion pump (principal); G89.29 Other chronic pain
CPT/HCPCS: 62370

== ENCOUNTER → 2017-11-08 | Day surgery (SDC) | payer MEDICARE ==
[2017-11-08 10:26] VITALS: BP 173/121; PULSE 83; RESP 18
--- NOTE | 2017-11-08 11:41 | P.PCN ---
Date of Procedure: 11/08/17 Surgeon: Earle Cheema Description of Procedure: Procedure: Intrathecal pump refill with analysis and reprogramming Preoperative diagnosis: Postlaminectomy syndrome Postoperative diagnosis: Same Surgeon: Earle Cheema M.D. Anesthesia: Skin local Indication for procedure: Is a very pleasant 62-year-old woman with a history of postlaminectomy syndrome who is maintained on intrathecal drug therapy. She reports is been very helpful reducing her pain. She does have some significant anxiety looking towards the future today as she has recently been diagnosed with a large acoustic neuroma which is growing rapidly. She is scheduled for surgical resection of this in approximately one week. She has discontinued her blood thinner in preparation for this. Procedure in detail: After potential risks and benefits reviewed the patient, the patient signed informed consent. The area over the intrathecal pump was then prepped and draped in the usual sterile fashion. The pump was accessed using the [employer] refill kit. Their refill protocol was followed. Contents of the pump were aspirated. The new solution was then verified in then injected through a bacteriostatic filter into the pump with aspiration occurring every 3-5 mL to confirm intrathecal placement. The needle was then withdrawn once the entire volume was injected and a Band-Aid was applied. Amount of fluid removed: 4.5 mL Current medications solution: Dilaudid 4 mg per mL and clonidine 100 micrograms per mL Current medication dosage: Dilaudid 0.8491 mg per day and clonidine 21.23 g per day. This dosage was not changed today. Refill solution injected: 20 mL Elective replacement interval: 73 months Low reservoir refill date: 01/31/2018
== END | disposition home or self-care (01) ==
LOC: PNWHC3 10:08
PROVIDERS: ATTEND Pain Medicine Pain Medicine
DX: M96.1 Postlaminectomy syndrome, not elsewhere classified (principal)
CPT/HCPCS: 62370

== ENCOUNTER → 2018-01-25 | Day surgery (SDC) | payer MEDICARE ==
[2018-01-25 12:11] VITALS: BP 163/95; PULSE 72; RESP 16
--- NOTE | 2018-01-25 12:34 | P.PCN ---
Date of Procedure: 01/25/18 Procedure(s) Performed: PROCEDURE: Intrathecal pain pump analysis, programming and reprogramming PREOPERATIVE DIAGNOSES: 1. lumbar PLPS 2-opioid tolerance. 3-year and intrathecal pain pump time for refill POSTOPERATIVE DIAGNOSES: same CONDITION: Stable. INDICATION: This is a 61-year-old patient with a long history of chronic pain secondary to lumbar PLPS. Patient previously had an intrathecal pump placed two weeks ago and dose was reduced secondary to concern for overdose as pump had been nonfunctional for several weeks. Patient has had severe pain all over since dose was lowered and is requesting increase back to previous dose; I am concerned for mild opioid withdrawal at this time and will plan to increase. DESCRIPTION: The intrathecal pain pump was analyzed and showed that the patient currently has reservoir volume of [ 3.5 ] mL. The patient is receiving intrathecal hydromorphone at concentration [4] mg/ ml, and clonidine PF at concentration [100] mcg/ml. Patient receiving daily dose of Dilaudid [0.84] mg/day and clonidine [21.2] mcg/day. We will continue with the same dose , 20 mL of the new medication injected in the pump on the pump refilled The patient is using some oral medications as well, specifically Percocet 7.5/ 325 mg q6 hours prn pain (#120) orally for breakthrough pain, Follow up in 3 months
== END ==
LOC: PNWHC3 11:38
PROVIDERS: ATTEND Specialist
DX: Z45.1 Encounter for adjustment and management of infusion pump (principal); M96.1 Postlaminectomy syndrome, not elsewhere classified; Z79.891 Long term (current) use of opiate analgesic
CPT/HCPCS: 62370; 99211

== ENCOUNTER → 2018-02-07 | Outpatient (CLI) | payer MEDICARE ==
[2018-02-07 12:50] VITALS: BP 184/76; PULSE 105; RESP 18; TEMP 98.2
--- NOTE | 2018-02-07 13:12 | P.PN ---
Progress Note - Text Progress Note Date: 02/07/18 This is a 62-year-old lady with history of postlaminectomy pain syndrome and intrathecal Dilaudid pump. The patient came back today with a new complaint of leaking from the pump area. She states that after her last refill see started leaking criteria for the referral and continued from time to time after that however she denies any fever or chills or any new neurologic changes in the lower extremities. She also denies any bowel or bladder change of function. By physical exam there is no erythema around the pump in the right lower abdominal area. There is no leakage. However there is some puffiness around the pump anteriorly. She has significant tenderness in her back but no skin rash or erythema. I asked the patient to use an abdominal binder for the next few days and if the leakage comes back then we might need to do a pump dye study under fluoroscopy.
== END | disposition home or self-care (01) ==
LOC: PNWHC3 12:32
PROVIDERS: ATTEND Anesthesiology
DX: T85.635A Leakage of other nervous system device, implant or graft, initial encounter (principal); M96.1 Postlaminectomy syndrome, not elsewhere classified
CPT/HCPCS: 99211

== ENCOUNTER → 2018-02-21 | Outpatient (CLI) | payer MEDICARE ==
[2018-02-21 11:53] VITALS: BP 135/84; PULSE 66; RESP 16
--- NOTE | 2018-02-21 14:03 | P.PCN ---
Date of Procedure: 02/21/18 Description of Procedure: 62 female who presents with a history of low back pain and intrathecal pump implantation. She has a chief complaint of fluid collection around the intrathecal pump in her right lower quadrant. Procedure: Aspiration of fluid and right lower quadrant Preop diagnosis: Seroma Postoperative diagnosis: Seroma Procedure description: After consent for the procedure and discussion of the risks and benefits, ultrasound was used to visualize fluid collection just anterior to the intrathecal pump. After sterile prep with ChloraPrep and drape were placed, and under direct ultrasound guidance. An 18-gauge needle was advanced under direct visualization using the in plane ultrasound technique. Once negative aspiration was confirmed for serous fluid a total of 60 ML's were evacuated. Post procedural ultrasound showed no fluid on the anterior portion of the pump. Patient tolerated procedure well, Band-Aid was placed after area was reclines with ChloraPrep. Patient will follow up for intrathecal pump refill at scheduled appointment date.
== END ==
LOC: PNWHC3 11:13
PROVIDERS: ATTEND Anesthesiology
DX: M54.5 Low back pain (principal)
CPT/HCPCS: 99211

== ENCOUNTER → 2018-03-12 | Outpatient (CLI) | payer MEDICARE ==
[2018-03-12 14:19] VITALS: PULSE 80; RESP 18
[2018-03-12 14:20] VITALS: BP 170/98
--- NOTE | 2018-03-12 15:23 | P.PCN ---
Date of Procedure: 03/12/18 Procedure(s) Performed: Procedure= Seroma aspiration from the intrathecal pain pump pocket. Preop diagnosis= seroma in the pain pump pocket Postoperative diagnosis= same as preop diagnosis. 62 female who presents with a history of low back pain and intrathecal pump implantation. She has a chief complaint of fluid collection around the intrathecal pump in her right lower quadrant. Patient had seroma aspiration a few weeks ago, and she had collection of fluid at the same area, patient here today to have aspiration of the seroma Procedure description: After consent for the procedure and discussion of the risks and benefits, fluid collection felt to be at the anterior aspect of the intrathecal pain pump which is located in the right lower abdominal quadrant , After sterile prep with ChloraPrep and drape were placed. Sterile technique An 18-gauge needle was advanced slowly and I was able to remove serous fluid a total of 18 ML's were evacuated. The fluid was sent for culture Patient tolerated procedure well, Band-Aid was placed after area was reclines with ChloraPrep. Patient will follow up for intrathecal pump refill at scheduled appointment date.
== END | disposition home or self-care (01) ==
LOC: PNWHC3 13:54
PROVIDERS: ATTEND Specialist
DX: L76.34 Postprocedural seroma of skin and subcutaneous tissue following other procedure (principal); M54.5 Low back pain
CPT/HCPCS: 10160; 87070; 87205

== ENCOUNTER → 2018-03-29 | Day surgery (SDC) | payer MEDICARE ==
[2018-03-29 12:34] VITALS: RESP 16
--- NOTE | 2018-03-29 12:42 | P.PCN ---
Date of Procedure: 03/29/18 Description of Procedure: OPERATION: Intrathecal pain pump analysis, programming and reprogramming, and intrathecal pain pump refill. Also seroma aspiration PREOPERATIVE DIAGNOSES: 1. near empty intrathecal pain pump time for refill. 2. opioid tolerance 3. failed back surgery syndrome lumbar area POSTOPERATIVE DIAGNOSES: 1. near empty intrathecal pain pump time for refill. 2. opioid tolerance 3. failed back surgery syndrome lumbar area ANESTHESIA: None. CONDITION: Stable. Description of the procedure; Intrathecal pain pump analysed ,it showed patient currently had reservoir volume[6.7 ] mL. The patient is receiving medication Dilaudid [4 ] mg/ ml, and clonidine concentration [100 ) micrograms/ml. Patient receiving daily dose of [ 0.87] mg/day Pain is well controlled , patient using medication for breakthrough pain [ Percocet 7.5] orally every 6 as needed. The location of the pump ( Right lower quadrant) Prepped with chlorhexidine x3 , then using 22-gauge needle [employer] kit advanced through the pump port, Total of [ 6] ml removed from the pump, the pump refills with the new medication total volume [ ] ml . No changes to the dose was made today. 25 ML's of seroma fluid was aspirated prior to filling the pump Alarm date will be jun 21 2018
== END | disposition home or self-care (01) ==
LOC: PNWHC3 11:36
PROVIDERS: ATTEND Hospitalist
DX: Z45.1 Encounter for adjustment and management of infusion pump (principal); M96.1 Postlaminectomy syndrome, not elsewhere classified
CPT/HCPCS: 62370

== ENCOUNTER → 2018-06-06 | Day surgery (SDC) | payer MEDICARE ==
[2018-06-06 12:57] VITALS: BP 132/91; PULSE 89; RESP 20
--- NOTE | 2018-06-06 13:53 | P.PCN ---
Date of Procedure: 06/06/18 Procedure(s) Performed: OPERATION: Intrathecal pain pump analysis, programming and reprogramming, and intrathecal pain pump refill. PREOPERATIVE DIAGNOSES: 1. near empty intrathecal pain pump time for refill. 2. opioid tolerance 3. failed back surgery syndrome lumbar area POSTOPERATIVE DIAGNOSES: 1. near empty intrathecal pain pump time for refill. 2. opioid tolerance 3. failed back surgery syndrome lumbar area ANESTHESIA: None. CONDITION: Stable. Description of the procedure; Intrathecal pain pump analysed ,it showed patient currently had reservoir volume[ 5.4 ] mL. The patient is receiving medication Dilaudid concentration 4 mg per mL, and clonidine concentration 100 g per mL Patient receiving daily dose of Dilaudid 0. 84 mg/day and clonidine 21 g/day. Pain is well controlled , patient using medication for breakthrough pain is at 7.5/325 every 6 hours And she is also on Flexeril 10 mg 3 times a day and Neurontin 900 mg every 6 hours ( 800+100 ) every 6 hours The location of the pump right lower quadrant abdominal area Prepped with chlorhexidine x3 , then using 22-gauge needle [employer] kit advanced through the pump port, Total of 5 ml removed from the pump, the pump refills with the new medication total volume [20 ] ml . (Pump capacity 40 ml ) The concentration of Dilaudid 4 mg /ml , and clonidine 100 g/ml. The patient will continue to see the daily dose of Dilaudid 0.84 mg/day and clonidine 21 micrograms/day and patient will follow up with the pain clinic in 3 months no change in the intrathecal dose, no change in the oral medication Valle given prescription for Percocet 7.5/325 every 6 hours dispensed 120 with 2 refills , and Neurontin 900mg every 6 hours dispence 120 ,, Flexeril 10 mg 3 times a day dispense 270 with 2 refills. Estimated FERCHO 66 months
== END ==
LOC: PNWHC3 12:20
PROVIDERS: ATTEND Specialist
DX: Z45.1 Encounter for adjustment and management of infusion pump (principal); M96.1 Postlaminectomy syndrome, not elsewhere classified; F11.20 Opioid dependence, uncomplicated
CPT/HCPCS: 62370

== ENCOUNTER → 2018-07-03 | Outpatient (CLI) | payer MEDICARE ==
[2018-07-03 13:20] VITALS: BP 157/87; PULSE 90; RESP 18
--- NOTE | 2018-07-03 13:24 | P.PN ---
Subjective Progress Note Date: 07/03/18 This is a 63-year-old female with history of lumbar postlaminectomy pain syndrome and intrathecal Dilaudid infusion. The patient has severe allodynia to touch in the lumbar area. She has been using local ointments with no improvement. The patient wants to get off her opioids and start using CBD Ointment n her back. She denies any new neurologic symptoms in her legs. 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 Today, pt denies new-onset weakness, bowel/bladder incontinence, or any other signs or symptoms of cauda equina syndrome. There are no signs of acute intoxication, and no indications of medication diversion or overuse. In addition to above, 13-point review of systems is also negative for chest pain, shortness of breath, changes in vision, changes in hearing, new onset weakness, abdominal pain, diarrhea, extreme fatigue, malaise, fever, skin changes, homicidal or suicidal ideation, or bowel or bladder incontinence. Vital Signs: Reviewed in EMR Gen: AAOx3, NAD HEENT: PERRLA,hearing grossly normal Pulm: resp unlabored,CTA Heart:S1,S2, No Mur Neck: supple, trachea midline Neuro exam of the lower extremities: Decreased right knee reflex compared to the left side absent ankle reflex bilaterally. She has normal muscle strength in the lower extremities bilaterally Straight leg raising test: Negative bilaterally Tenderness in the paravertebral musculature: Severe allodynia to touch in the lumbar area. The patient has her opioid pump implanted in the abdomen on the right side. Neuro: CN II-XII grossly intact, Imaging: Reviewed in EMR/chart Assessment: Postlaminectomy pain syndrome Significant peripheral vascular disease with treatment with Pradaxa Plan: 1. Explanation: Opioid and psychological risk scores were reviewed. Diagnoses, prognoses, and multiple treatment options including but not limited to physical therapy, interventional therapies, adjuvant medical therapies, narcotic medication therapies, and surgery were discussed with the patient and all questions were answered to the patient's satisfaction. 2. Opioid agreement: Signed with the patient and the patient is warned not to use opioids while driving or before driving and not to combine opioids with benzodiazepines or alcohol. 3. Counseling: The patient was counseled extensively on SMOKING CESSATION, BODY MASS INDEX, EXERCISE. Specifically, the patient was instructed regarding the importance of smoking cessation, obesity, and exercise in the context of both chronic pain and overall health. 4. Procedures: None 5. Consultations: None 6. Investigations: None 7. Medications: Decreased Percocet 7.5 mg to 3 times a day down from 4 times a day. I will decrease her to the thecal Dilaudid dose from 0.85 mg a day to 0.75 mg a day 8. Disposition: Return to clinic in 2 weeks for further decrease in her intrathecal Dilaudid dose. The patient can start using CBD ointment while we are weaning her down on her opioids. 9. Maps were reviewed and were appropriate. PQRS measures: 1-Patient's medications are documented in the chart. 2-Tobacco use is negative, counseling given 3-Patient has had a pneumococcal vaccine. 4-Advanced care planning discussed, patient unable to give 5-Opioid contract signed with the patient. 6-Pain positive, follow-up visit or procedure scheduled 7-Patient's blood pressure measured and documented above normal limits. The patient will follow up with his primary care physician. 8-Patient's weight was measured, and body mass index ABOVE the normal limits, and counseling was done. Patient instructed to follow up with PCP. 9-Patient WAS NOT identified as an unhealthy alcohol user. Controlled Substance Measures Is patient prescribed a controlled substance at discharge?: Yes When asked, does pt state using other controlled substances?: No If prescribed controlled substance>3 days was MAPS reviewed?: Yes If Rx opioid, was Start Talking consent form obtained?: Yes If opioid is for acute pain is fill amount 7 days or less?: No Was information provided regarding opioid addiction?: Yes Objective - Vital Signs Vital signs: Intake & Output 07/02/18 07/03/18 07/03/18 18:59 06:59 18:59 Weight 72.575 kg
== END ==
LOC: PNWHC3 12:48
PROVIDERS: ATTEND Anesthesiology
DX: M96.1 Postlaminectomy syndrome, not elsewhere classified (principal); I73.9 Peripheral vascular disease, unspecified; Z79.899 Other long term (current) drug therapy; Z71.6 Tobacco abuse counseling
CPT/HCPCS: 99211

== ENCOUNTER → 2018-07-17 | Outpatient (CLI) | payer MEDICARE ==
[2018-07-17 12:37] VITALS: BP 143/79; PULSE 73; RESP 16
--- NOTE | 2018-07-17 13:30 | P.PCN ---
Date of Procedure: 07/17/18 Surgeon: Earle Cheeam Description of Procedure: Procedure: Intrathecal pump reprogramming Preoperative diagnosis: Chronic intractable pain Postoperative diagnosis: Same Surgeon: Earle Cheema M.D. Anesthesia: Skin local Indication for procedure: This is a pleasant 63-year-old woman with a history of a in intrathecal pump. She is currently weaning off of this pump. She presents today for decreasing her dosage. Procedure in detail: After potential risks and benefits reviewed the patient, the patient signed informed consent. The pump was interrogated. The current infusion rate which was 0.82 mg of Dilaudid daily was identified. This was then reprogrammed such that the infusion amount was 0.59 mg daily. This represented a slightly greater than 20% reduction in her medication. Patient did demonstrate a significant fluid collection around her pump. She's had that this began shortly after her surgery. It is unclear as to whether this is a seroma or whether this could represent a disconnect of her intrathecal pump catheter. I will order some x-ray films to evaluate for this. She will follow-up in 2 weeks for further weaning of her intrathecal pump.
== END | disposition home or self-care (01) ==
LOC: PNWHC3 12:19
PROVIDERS: ATTEND Pain Medicine Pain Medicine
DX: G89.29 Other chronic pain (principal); Z96.89 Presence of other specified functional implants
CPT/HCPCS: 62368

== ENCOUNTER → 2018-07-17 | Outpatient (CLI) | payer MEDICARE ==
--- NOTE | 2018-07-17 15:00 | XR ---
2 view abdomen HISTORY: Catheter placement 2 views of the abdomen on 4 images Correlation to prior exam 05/07/2011 There is a pump over the right iliac region. Catheter courses towards the midline at approximately L3 level and shows a coiled appearance which is developed in the interval. Bilateral iliac stents are p resent. Postop changes are noted in the left groin. Osteoarthritic change in the hips. Distal tip of the patient's catheter is thought to be at approximately the T10 level within the spina l canal. There may be a kink within the catheter posterior to the spinous process L2. Surgical clips present in the upper abdomen. IMPRESSION: Catheter course as described appears similar to prior exam although no lateral exam submi tted on previous images. Postprocedural changes.
== END | disposition home or self-care (01) ==
LOC: RADXRMAIN 13:24
PROVIDERS: ATTEND Pain Medicine Pain Medicine
DX: Z45.89 Encounter for adjustment and management of other implanted devices (principal); Z96.89 Presence of other specified functional implants
CPT/HCPCS: 74019

== ENCOUNTER → 2018-07-31 | Outpatient (CLI) | payer MEDICARE ==
[2018-07-31 12:02] VITALS: BP 129/82; PULSE 90; RESP 18
--- NOTE | 2018-07-31 13:26 | P.PCN ---
Date of Procedure: 07/31/18 Procedure(s) Performed: OPERATION: Intrathecal pain pump analysis, programming and reprogramming, with out pump refill. PREOPERATIVE DIAGNOSES: 1. Chronic pain syndrome 2. opioid tolerance 3. failed back surgery syndrome lumbar area POSTOPERATIVE DIAGNOSES: Same as preoperative diagnosis. ANESTHESIA: None. CONDITION: Stable. Description of the procedure: This is 63 years old female with a history of chronic severe low back pain she had intrathecal pain pump implanted several years ago, and she is currently on intrathecal opioid, patient wishes to wean herself off the old. Medication, and she is planning to start taking CPD oil , and for this reason we are decreasing her intrathecal pain medication every visit, the intrathecal pain pump analyzed and a short currently she is on Dilaudid concentration 4 mg per mL and clonidine concentration 100 g per mL, and tissue receiving a daily dose of Dilaudid 0.59 , after we programmed the pump I decreased the intrathecal daily dose to Dilaudid 0.2 mg per day and the clonidine decreased to 4.99 g per day , which is equal to 66% decrease in the daily dose , and patient currently receiving Percocet 7.5/325 every 6 hours when necessary for breakthrough pain, and to compensate for the decrease in the intrathecal pain pump and we'll increase the Percocet dose to Percocet 10/325 every 6 hours dispensed 120 with one refill, patient currently receiving and Neurontin 900 mg every 8 hours , ( 800+100 ) I will decrease the Neurontin to 600 mg every 8 hours, and patient will continue baclofen 10 mg 3 times a day, Patient will follow up in the pain clinic in 8 weeks next visit we will fill out the pump with normal saline, and will keep the pump for a few months , and if she does well after that we have the option of extracting the pain pump, if patient wishes to do that, next visit also we will try to decrease the Neurontin dose to 400 mg every 8 hours, patient will follow up in the pain clinic in 2 months
== END | disposition home or self-care (01) ==
LOC: PNWHC3 11:41
PROVIDERS: ATTEND Specialist
DX: G89.4 Chronic pain syndrome (principal); M96.1 Postlaminectomy syndrome, not elsewhere classified
CPT/HCPCS: 99211

== ENCOUNTER → 2018-08-22 | Day surgery (SDC) | payer MEDICARE ==
[2018-08-20 17:20] VITALS: BMI 27.1
[2018-08-22 11:56] VITALS: BP 188/88; PULSE 73; RESP 18
== END ==
LOC: PNWHC3 11:43
PROVIDERS: ATTEND Specialist
DX: G89.4 Chronic pain syndrome (principal); M54.5 Low back pain
CPT/HCPCS: 62368; 99211

== ENCOUNTER → 2018-08-22 | Outpatient (CLI) | payer MEDICARE ==
[2018-08-22 12:03] LABS: Appearance,Urine Clear (Clear); Bilirubin,Urine Negative (Negative); Blood,Urine Negative (Negative); Color,Urine Yellow; Glucose,Urine (UA) Negative (Negative); Hyaline Casts,Urine 7 /lpf (0-2); Ketones,Urine Negative (Negative); Leukocyte Esterase,Urine Large (Negative); Mucus,Urine Occasional /hpf; Nitrite,Urine Negative (Negative); Protein,Urine 1+ (Negative); RBC,Urine 2 /hpf (0-5); Specific Gravity,Urine 1.025 (1.001-1.035); Squamous Epithelial Cell,Urine 2 /hpf (0-4); WBC,Urine 6 /hpf (0-5)
[2018-08-22 12:16] LABS: Basophils # (A) 0.1 k/uL (0-0.2); Basophils % (A) 1 %; Eosinophils # (A) 0.2 k/uL (0-0.7); Eosinophils % (A) 2 %; HCT 46.1 % (34.0-46.0); HGB 15.1 gm/dL (11.4-16.0); Lymphocytes # (A) 1.8 k/uL (1.0-4.8); Lymphocytes % (A) 16 %; MCH 30.6 pg (25.0-35.0); MCHC 32.8 g/dL (31.0-37.0); MCV 93.2 fL (80.0-100.0); Mean Platelet Volume 7.5; Monocytes # (A) 0.6 k/uL (0-1.0); Monocytes % (A) 5 %; Neutrophils # (A) 8.2 k/uL (1.3-7.7); Neutrophils % (A) 74 %; Platelet Count 287 k/uL (150-450); RBC 4.94 m/uL (3.80-5.40); RDW 14.8 % (11.5-15.5)
[2018-08-22 15:24] LABS: Erythrocyte Sedimentation Rate 13 mm/hr (0-20)
[2018-08-22 16:20] LABS: Vitamin D 25 Hydroxy 72.7 ng/mL (30.0-100.0)
[2018-08-22 16:49] LABS: ALT 18 U/L (8-44); AST 16 U/L (13-35); African American GFR (CKD) 113.2 (60.0-200.0); Albumin/Globulin Ratio 2.44 (1.60-3.17); Alkaline Phosphatase 134 U/L (41-126); BUN/Creat Ratio 16.67 Ratio (12.00-20.00); C Reactive Protein <0.4 mg/dL (0.0-0.8); Calcium 9.4 mg/dL (8.7-10.3); Carbon Dioxide 26.8 mmol/L (21.6-31.8); Chloride 109 mmol/L (96-109); Cholesterol 145 mg/dL (0-200); Globulin 1.8 g/dL (1.6-3.3); Glucose 103 mg/dL (70-110); LDL Cholesterol,Calculated 83.8 mg/dL (0.0-131.0); Potassium 3.7 mmol/L (3.5-5.5); Sodium 148 mmol/L (135-145); Total Bilirubin 0.3 mg/dL (0.3-1.2); Total Protein 6.2 g/dL (6.2-8.2)
[2018-08-22 17:28] LABS: DNA Double-Stranded NEGATIVE (NEGATIVE)
--- NOTE | 2018-08-22 20:57 | P.PCN ---
Date of Procedure: 08/22/18 Procedure(s) Performed: OPERATION: Intrathecal pain pump analysis, programming and reprogramming, without pump refill. PREOPERATIVE DIAGNOSES: 1. Chronic pain syndrome 2. opioid tolerance 3. failed back surgery syndrome lumbar area POSTOPERATIVE DIAGNOSES: Same as preoperative diagnosis. ANESTHESIA: None. CONDITION: Stable. Description of the procedure: This is 63 years old female with a history of chronic severe low back pain she had intrathecal pain pump implanted several years ago, and she is currently on intrathecal opioid, patient wishes to wean herself off the opioid Medication, and she is planning to start taking CPD oil , and for this reason we are decreasing her intrathecal pain medication every visit, the intrathecal pain pump analyzed and a showed currently she is on Dilaudid concentration 4 mg per mL and clonidine concentration 100 g per mL, and she receiving a daily dose of Dilaudid 0.2 mg/day and clonidine 4.9 g per day , after we programmed the pump I decreased the intrathecal daily dose to Dilaudid 0.2 mg per day and the clonidine decreased to 4.99 g per day, and patient had residual volume 7.5 ML, patient wishes to stop using intrathecal medication for this reason the pump area which is located in the lower abdominal wall. Prepped with chlorhexidine 3 and under sterile technique using Mindjet kit, I was able to access the pump port using 20-gauge needle, total of 8 ML of the medication removed from the pump and the pump injected with a 20 mL of pre servative free normal saline, and then after that , I reprogrammed the pump with a new medication normal saline, the concentration 10 mg of normal saline per mL, and patient will receive a daily dose of normal saline and 0.1 mg per day, and patient will have enough residual volume and to 07/04/2027, patient already has prescription for Percocet 10/325 every 6 hours when necessary, she will continue to use the Percocet as prescribed, but I will decrease the dose of Neurontin to 400 mg twice a day dispense 60 with 2 refills and patient will follow up with the pain clinic in 2 months, next visit we will discuss with the patient the option of decreasing the Percocet dose and also decreasing the Neurontin dose as tolerated
== END | disposition home or self-care (01) ==
LOC: LABWHC1 11:17
PROVIDERS: ATTEND Internal Medicine Rheumatology
DX: I10 Essential (primary) hypertension (principal); M85.80 Other specified disorders of bone density and structure, unspecified site; E78.2 Mixed hyperlipidemia; Z79.899 Other long term (current) drug therapy
CPT/HCPCS: 36415; 80053; 80061; 81001; 82306; 85025; 85652; 86140; 86160; 86225

== ENCOUNTER → 2018-09-05 | Outpatient (CLI) | payer MEDICARE ==
--- NOTE | 2018-09-05 15:59 | BD ---
EXAMINATION TYPE: Axial Bone Density DATE OF EXAM: 09/05/2018 COMPARISON: 2016 CLINICAL HISTORY: Postmenopausal female. Osteoporosis screening. Height: 5 FT 2 1/2 IN Weight: 155 FRAX RISK QUESTIONS: FX AN ADULT: YES Secondary Osteoporosis: Current Tobacco Use: YES RISK FACTORS HISTORY OF: Surgery to Spine/Hip(right/left)/Wrist (right/left): BILATERAL CARPAL TUNNEL When: APPROX LATE 80'S Family History of Osteoporosis: YES Active: YES Postmenopausal woman: PART HYST AGE 28 SYMPTOMS AGE 51 Take estrogen and/or progesterone medications: TOOK HRT 2 YEARS APPROX AGE 51 NO LONGER Lost more than 2 inches in height since high school: YES Poor Health: YES MEDICATIONS: Prednisone or other steroids: How Long: Thyroid Medications: Which medication: How Long: Osteoporosis Medications: Which medication: How Long: Additional Medications: METOPROLOL, ATORVASTATIN, LOSARTIN, GABAPENTIN, OMEPRAZOLE, PRADAXA, CLONIDIN E, OXYBUTYNIN, LEVOTHYROXINE, HYDROXYCHLORAQUINE, OXYCODONE/ACETAMINOPHEN, CYCLOBENZAPRINE, VOLTAREN GEL, PRILOCAINE, PRAMIPIEXOLE, NYSTATIN, PREDISONE WHEN SYMPTOMATIC, CLONAZEPAM Additional History: PT HAS LUPUS, PT HAS A PAIN PUMP LOCATED IN RT LOWER ABDOMEN NEAR SPINE MEDICATION LIST IN NOTES EXAM MEASUREMENTS: Bone mineral densitometry was performed using the [employer] System. Bone mineral density as measured about the Lumbar spine is: ----- L1-L4(G/cm2): 1.272 T Score Values are as follows: ----- L2: -0.3 ----- L3: 1.6 ----- L4: 1.6 ----- L1-L4: 0.8 Bone mineral density has: DECREASED -1.0 % since study of: 2016 Bone mineral density about the R hip (g/cm2): 0.824 Bone mineral density about the L hip (g/cm2): 0.969 T Score values are as follows: -----R Neck: -1.5 -----L Neck: -0.5 -----R Total: -0.9 -----L Total: -0.2 Bone mineral density has: DECREASED -5.6 % since study of: 2015 IMPRESSION: Osteopenia (T Score between -2.5 and -1). There is slightly increased risk of fracture and the patient may be considered for treatment. Re-Screen 2-5 years. NOTE: T-SCORE=SD OF THE YOUNG ADULT MEAN.
--- NOTE | 2018-09-06 15:19 | MM ---
Reason for exam: screening (asymptomatic). Last mammogram was performed 1 year ago. History: Patient is postmenopausal and has history of endometrial cancer at age 28. Family history of breast cancer in maternal aunt and breast cancer in cousin. Took hormonal contraceptives for 11 years beginning at age 15. Physical Findings: A clinical breast exam by your physician is recommended on an annual basis and results should be correlated with mammographic findings. MG 3D Screening Mammo W/Cad Bilateral CC and MLO view(s) were taken. Prior study comparison: August 28, 2017, bilateral MG screening mammo w CAD. August 25, 2016, bilateral MG 3d screening mammo w/cad. There are scattered fibroglandular densities. Benign appearing bilateral calcifications. No significant changes when compared with prior studies. ASSESSMENT: Benign, BI-RAD 2 RECOMMENDATION: Routine screening mammogram of both breasts in 1 year.
== END | disposition home or self-care (01) ==
LOC: RADMAMWWP 14:24
PROVIDERS: ATTEND Obstetrics & Gynecology
DX: Z12.31 Encounter for screening mammogram for malignant neoplasm of breast (principal); M85.851 Other specified disorders of bone density and structure, right thigh
CPT/HCPCS: 77063; 77067; 77080

== ENCOUNTER → 2018-10-03 | Outpatient (CLI) | payer MEDICARE ==
[2018-10-03 15:04] VITALS: BP 140/75; PULSE 70; RESP 16
--- NOTE | 2018-10-03 19:22 | P.PAINPG ---
Subjective Progress Note Date: 10/03/18 This is a follow-up visit for this 63 years old female, with a history of failed back surgery syndrome and opioid tolerance, patient was on intrathecal opioid treatment, and patient wishes to wean herself off intrathecal pain medication, and she wished to continue to use CBD oil, for this reason we are weaning her off all pain medication, currently she is on intrathecal normal saline infusion, and she is using Percocet 10/325 twice a day and Neurontin 400 mg twice a day, she denies any side effect of the medication she denies any excessive drowsiness, sleepiness and she denies any withdrawal symptoms, she continued to use CBD oil, and she reported that the current treatment helping her to control her pain Objective - Vital Signs Vital signs: Vital Signs Temp Pulse 70 10/03/18 14:45 Resp 16 10/03/18 14:45 BP 140/75 10/03/18 14:45 Pulse Ox 92 L 10/03/18 14:45 Intake & Output 10/03/18 10/03/18 10/04/18 06:59 18:59 06:59 Weight 70.307 kg - Exam Physical Examinations : -Constitutiona : Cooperative , not in acute distress . -HEENT : nech : supple , no Lymphadenopathy , normal thyroid size . eyes : no ptosis , no icterus, no photophobia . . - neurologic : Cranial nerve II to XII intact , no focal neurological deffecit . -psychatric : alert , oriented X 3 , appropriate affect , intact judgment and insight . -Lymphatic : no Lymphadenopathy . - musculoskeltal : Lumber spine moter stegnth lower extremities ,thigh and legs 5/5 Right side , 5/5 Left side Assessment and Plan Plan: Assessment and plan= failed back surgery syndrome and lumbar area, Chronic and current use of high-risk medication/opioid. Patient currently uses CBd on with trying to wean her off on opioid medications I will decrease the Percocet to 5/325 every 12 hours dispense 60 with 1 refill (she was using Percocet 10/325 twice a day ) I would decrease Neurontin to 300 mg 2 times a day (currently 400 mg 2 times a day. She will follow up in the pain clinic in 2 months Time with Patient: Less than 30 PQRS Measure Charge Sheet Measure #130: Documentation of Current Meds in Medical Chart: Patient's medications documented in chart Measure #226: Tobacco Use: Screen & Cessation Intervention: Pt screened for tobacco use AND intervention given Measure #111: Pneumonia Vaccination: Pneumococcal vaccine NOT administered or previously given Measure #47: Advance Care Plan: Advance care planning discussed & documented, pt chose/unable to give Measure #412: Opioid Treatment Agreement: Documented signed opioid trtmnt agreemnt min once during opioid trtmnt Measure #408: Opioid Therapy Follow-up Evaluation: Patient had f/u eval minimum every 3 months during opioid therapy Measure #317: Preventitive Care & Scrn High Bld Press & F/U: Pre-hypertensive or hypertensive BP documented, pt will f/u with PCP Measure #128: Body Mass Index (BMI) Screening & Follow-up: BMI documented ABOVE normal parameters - f/u documented Measure #131: Pain Assessment & Follow-up: Pain positive & plan documented, Follow-up scheduled Measure #431: Unhealthy Alcohol Use Preventative Care & Scrn: Patient not identified as an unhealthy alcohol user PQRS Narrative: Smoking Status Current every day smoker Narcotic Agreement Date Signed 05/15/17 Blood Pressure 140/75 Pain Intensity [Bilateral 2 Lower Back] Scale Used Numeric (1 - 10) Hx Alcohol Use (MH) No Home Medications: Ambulatory Orders Ascorbic Acid [Vitamin C] 500 mg PO DAILY 08/14/14 Aspirin 81 mg PO HS 08/14/14 Cholecalciferol [Vitamin D3] 5,000 unit PO BID 08/14/14 Hydroxychloroquine Sulfate [Plaquenil] 200 mg PO BID 08/14/14 Levothyroxine Sodium [Synthroid] 50 mcg PO DAILY 08/14/14 Metoprolol Tartrate [Lopressor] 50 mg PO BID 08/14/14 Multivit with Calcium,Iron,Min [Women's Daily Multivitamin] 1 tab PO DAILY 08/14/14 Niacin 500 mg PO HS 08/14/14 Omeprazole [PriLOSEC] 40 mg PO BID 08/14/14 Oxybutynin Chloride [Oxybutynin Chloride ER] 15 mg PO DAILY 08/14/14 Simethicone [Gas-X] 125 mg PO BID 08/14/14 Womans Laxative 1 tab PO DAILY PRN 08/14/14 cloNIDine HCL [Catapres] 0.2 mg PO HS 08/14/14 diphenhydrAMINE [Benadryl] 50 mg PO HS PRN 08/14/14 Docusate [Colace] 100 mg PO HS PRN 10/21/14 Pramipexole [Mirapex] 0.5 mg PO HS 10/21/14 Atorvastatin [Lipitor] 10 mg PO HS 06/27/16 Max-Freeze 1 spray TOPICAL BID 02/23/17 Melatonin 10 mg PO HS 02/23/17 Nystatin 100,000 Unit/gm Powd [Mycostatin Powder] 1 applic TOPICAL TID PRN 02/23/17 Prilocaine,Lidocaine,Topiramat 1 dose TOPICAL BID 02/23/17 predniSONE 5 mg PO DAILY PRN 02/23/17 Intrathecal Opioid Pump 1 implant INTRATHECA CONTINUOUS 06/14/17 Potassium/Magnesium 250mg 1 tab PO HS 08/01/18 Cannabidiol (Cbd) Extract [Epidiolex] 1 applicate PO BID 08/20/18 Cyclobenzaprine [Flexeril] 10 mg PO BID 08/20/18 Dabigatran [Pradaxa] 75 mg PO BID 08/20/18 Diclofenac Sodium Gel [Voltaren Gel] 4 gm TOPICAL BID 08/20/18 Loperamide HCl [Imodium A-D] 2 mg PO DAILY PRN 08/20/18 Losartan Potassium [Cozaar] 100 mg PO DAILY 08/20/18 clonazePAM [KlonoPIN] 0.5 mg PO HS 08/20/18 Gabapentin [Neurontin] 1 tab PO BID 10/03/18 amLODIPine [Norvasc] 5 mg PO DAILY 10/03/18 oxyCODONE-APAP 5-325MG [Percocet 5-325 mg] 1 tab PO Q6HR PRN 10/03/18 Controlled Substance Measures - Controlled Substance Measures Is patient prescribed a controlled substance at discharge?: Yes When asked, does pt state using other controlled substances?: No If prescribed controlled substance>3 days was MAPS reviewed?: Yes If Rx opioid, was Start Talking consent form obtained?: Yes If opioid is for acute pain is fill amount 7 days or less?: No Was information provided regarding opioid addiction?: Yes
== END | disposition home or self-care (01) ==
LOC: PNWHC3 13:39
PROVIDERS: ATTEND Specialist
DX: M96.1 Postlaminectomy syndrome, not elsewhere classified (principal); F11.20 Opioid dependence, uncomplicated; Z79.899 Other long term (current) drug therapy
CPT/HCPCS: 99211

== ENCOUNTER → 2018-12-19 | Outpatient (CLI) | payer MEDICARE ==
[2018-12-19 13:22] VITALS: BP 207/95; PULSE 82; RESP 20
--- NOTE | 2019-01-08 11:45 | P.PAINPG ---
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, patient was on intrathecal opioid treatment, and patient wishes to wean herself off intrathecal pain medication, and she wished to continue to use CBD oil, for this reason we are weaning her off all pain medication, currently she is on intrathecal normal saline infusion, and she is using Percocet 5/325 twice a day and Neurontin 300 mg twice a day, Flexeril 10 mg twice a day, Voltaren gel, she denies any side effect of the medication she denies any excessive drowsiness, sleepiness and she denies any withdrawal symptoms, she continued to use CBD oil, and she reported that the current treatment helping her to control her pain, she reported that increased pain since we decreased the Percocet dose last visit, but she is willing to continue on the same dose, and currently patient getting intrathecal saline(the intrathecal pump filled with saline and she is getting the minimum dose of normal saline intrathecally ) Objective - Exam -Constitutiona : Cooperative , not in acute distress . -HEENT : nech : supple , no Lymphadenopathy , normal thyroid size . eyes : no ptosis , no icterus, no photophobia . . - neurologic : Cranial nerve II to XII intact , no focal neurological deffecit . -psychatric : alert , oriented X 3 , appropriate affect , intact judgment and insight . -Lymphatic : no Lymphadenopathy . - musculoskeltal : Lumber spine moter stegnth lower extremities ,thigh and legs 5/5 Right side , 5/5 Left side Assessment and Plan Plan: Assessment and plan= failed back surgery syndrome and lumbar area, Chronic and current use of high-risk medication/opioid. Patient currently uses CBd on with trying to wean her off on opioid medications Continue Percocet to 5/325 every 12 hours dispense 60 with 1 refill . Continue Flexeril 10 mg twice a day dispense 60 with 1 refill Continue Neurontin to 300 mg 2 times a day. Continue voltaren 1% gel apply to the painful area twice daily She will follow up in the pain clinic in 2 months Blood pressure was significantly elevated and patient was instructed to see her primary care YASMINE because of elevated blood pressure Patient reported that she always check her blood pressure 100 primary care needs almost within normal limits. Time with Patient: Less than 30 PQRS Measure Charge Sheet Measure #130: Documentation of Current Meds in Medical Chart: Patient's medications documented in chart Measure #226: Tobacco Use: Screen & Cessation Intervention: Pt screened for tobacco use AND intervention given Measure #111: Pneumonia Vaccination: Pneumococcal vaccine NOT administered or previously given Measure #47: Advance Care Plan: Advance care planning discussed & documented, pt chose/unable to give Measure #412: Opioid Treatment Agreement: Documented signed opioid trtmnt agreemnt min once during opioid trtmnt Measure #408: Opioid Therapy Follow-up Evaluation: Patient had f/u eval minimum every 3 months during opioid therapy Measure #317: Preventitive Care & Scrn High Bld Press & F/U: Pre-hypertensive or hypertensive BP documented, pt will f/u with PCP Measure #128: Body Mass Index (BMI) Screening & Follow-up: BMI documented ABOVE normal parameters - f/u documented Measure #131: Pain Assessment & Follow-up: Pain positive & plan documented, Follow-up scheduled Measure #431: Unhealthy Alcohol Use Preventative Care & Scrn: Patient not identi fied as an unhealthy alcohol user PQRS Narrative: Smoking Status Current every day smoker Narcotic Agreement Date Signed 05/15/17 Hx Alcohol Use (MH) No Home Medications: Ambulatory Orders Ascorbic Acid [Vitamin C] 500 mg PO DAILY 08/14/14 Aspirin 81 mg PO HS 08/14/14 Cholecalciferol [Vitamin D3] 5,000 unit PO BID 08/14/14 Hydroxychloroquine Sulfate [Plaquenil] 200 mg PO BID 08/14/14 Levothyroxine Sodium [Synthroid] 50 mcg PO DAILY 08/14/14 Metoprolol Tartrate [Lopressor] 50 mg PO BID 08/14/14 Multivit with Calcium,Iron,Min [Women's Daily Multivitamin] 1 tab PO DAILY 08/14/14 Niacin 500 mg PO HS 08/14/14 Omeprazole [PriLOSEC] 40 mg PO BID 08/14/14 Simethicone [Gas-X] 125 mg PO BID 08/14/14 Womans Laxative 1 tab PO DAILY PRN 08/14/14 cloNIDine HCL [Catapres] 0.2 mg PO HS 08/14/14 diphenhydrAMINE [Benadryl] 50 mg PO HS PRN 08/14/14 Docusate [Colace] 100 mg PO HS PRN 10/21/14 Pramipexole [Mirapex] 0.5 mg PO HS 10/21/14 Atorvastatin [Lipitor] 10 mg PO HS 06/27/16 Max-Freeze 1 spray TOPICAL BID 02/23/17 Melatonin 10 mg PO HS 02/23/17 Nystatin 100,000 Unit/gm Powd [Mycostatin Powder] 1 applic TOPICAL TID PRN 02/23/17 Prilocaine,Lidocaine,Topiramat 1 dose TOPICAL BID 02/23/17 predniSONE 5 mg PO DAILY PRN 02/23/17 Intrathecal Opioid Pump 1 implant INTRATHECA CONTINUOUS 06/14/17 Potassium/Magnesium 250mg 1 tab PO HS 08/01/18 Cannabidiol (Cbd) Extract [Epidiolex] 1 applicate PO BID 08/20/18 Cyclobenzaprine [Flexeril] 10 mg PO BID 08/20/18 Dabigatran [Pradaxa] 75 mg PO BID 08/20/18 Diclofenac Sodium Gel [Voltaren Gel] 4 gm TOPICAL BID 08/20/18 Loperamide HCl [Imodium A-D] 2 mg PO DAILY PRN 08/20/18 Losartan Potassium [Cozaar] 100 mg PO DAILY 08/20/18 clonazePAM [KlonoPIN] 0.5 mg PO HS 08/20/18 Gabapentin [Neurontin] 300 mg PO BID 10/03/18 amLODIPine [Norvasc] 5 mg PO DAILY 10/03/18 oxyCODONE-APAP 5-325MG [Percocet 5-325 mg] 1 tab PO Q6HR PRN 10/03/18 Controlled Substance Measures - Controlled Substance Measures Is patient prescribed a controlled substance at discharge?: Yes When asked, does pt state using other controlled substances?: No If prescribed controlled substance>3 days was MAPS reviewed?: Yes If Rx opioid, was Start Talking consent form obtained?: Yes If opioid is for acute pain is fill amount 7 days or less?: No Was information provided regarding opioid addiction?: Yes
== END | disposition home or self-care (01) ==
LOC: EDSTATUS 11-28 13:30 → PNWHC3 12:41
PROVIDERS: ATTEND Specialist
DX: M96.1 Postlaminectomy syndrome, not elsewhere classified (principal); F17.200 Nicotine dependence, unspecified, uncomplicated; Z79.891 Long term (current) use of opiate analgesic; Z79.82 Long term (current) use of aspirin; Z79.890 Hormone replacement therapy; Z79.899 Other long term (current) drug therapy
CPT/HCPCS: 99211

== ENCOUNTER → 2018-12-19 | Outpatient (CLI) | payer MEDICARE ==
[2018-12-19 12:50] LABS: Basophils # (A) 0.1 k/uL (0-0.2); Basophils % (A) 1 %; Eosinophils # (A) 0.1 k/uL (0-0.7); Eosinophils % (A) 1 %; HCT 43.7 % (34.0-46.0); HGB 14.8 gm/dL (11.4-16.0); Lymphocytes # (A) 1.9 k/uL (1.0-4.8); Lymphocytes % (A) 21 %; MCH 32.3 pg (25.0-35.0); MCHC 33.9 g/dL (31.0-37.0); MCV 95.1 fL (80.0-100.0); Mean Platelet Volume 6.2; Monocytes # (A) 0.4 k/uL (0-1.0); Monocytes % (A) 4 %; Neutrophils # (A) 6.5 k/uL (1.3-7.7); Neutrophils % (A) 71 %; Platelet Count 301 k/uL (150-450); RBC 4.59 m/uL (3.80-5.40); RDW 13.5 % (11.5-15.5); WBC 9.2 k/uL (3.8-10.6)
[2018-12-19 13:49] LABS: Erythrocyte Sedimentation Rate 21 mm/hr (0-20)
--- NOTE | 2018-12-19 14:20 | P.PAINPG ---
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, patient was on intrathecal opioid treatment, and patient wishes to wean herself off intrathecal pain medication, and she wished to continue to use CBD oil, for this reason we are weaning her off all pain medication, currently she is on intrathecal normal saline infusion, and she is using Percocet 5/325 twice a day and Neurontin 300 mg twice a day, Flexeril 10 mg twice a day, Voltaren gel, she denies any side effect of the medication she denies any excessive drowsiness, sleepiness and she denies any withdrawal symptoms, she continued to use CBD oil, and she reported that the current treatment helping her to control her pain, she reported that increased pain since we decreased the Percocet dose last visit, but she is willing to continue on the same dose, and currently patient getting intrathecal saline(the intrathecal pump filled with saline and she is getting the minimum dose of normal saline intrathecally ) Objective - Exam -Constitutiona : Cooperative , not in acute distress . -HEENT : nech : supple , no Lymphadenopathy , normal thyroid size . eyes : no ptosis , no icterus, no photophobia . . - neurologic : Cranial nerve II to XII intact , no focal neurological deffecit . -psychatric : alert , oriented X 3 , appropriate affect , intact judgment and insight . -Lymphatic : no Lymphadenopathy . - musculoskeltal : Lumber spine moter stegnth lower extremities ,thigh and legs 5/5 Right side , 5/5 Left side - Labs CBC & Chem 7: 12/19/18 12:20 Assessment and Plan Plan: Assessment and plan= failed back surgery syndrome and lumbar area, Chronic and current use of high-risk medication/opioid. Patient currently uses CBd on with trying to wean her off on opioid medications Continue Percocet to 5/325 every 12 hours dispense 60 with 1 refill . Continue Flexeril 10 mg twice a day dispense 60 with 1 refill Continue Neurontin to 300 mg 2 times a day. Continue voltaren 1% gel apply to the painful area twice daily She will follow up in the pain clinic in 2 months Blood pressure was significantly elevated and patient was instructed to see her primary care YASMINE because of elevated blood pressure Patient reported that she always check her blood pressure 100 primary care needs almost within normal limits. Time with Patient: Less than 30 PQRS Measure Charge Sheet Measure #130: Documentation of Current Meds in Medical Chart: Patient's medications documented in chart Measure #226: Tobacco Use: Screen & Cessation Intervention: Pt screened for tobacco use AND intervention given Measure #111: Pneumonia Vaccination: Pneumococcal vaccine NOT administered or previously given Measure #47: Advance Care Plan: Advance care planning discussed & documented, pt chose/unable to give Measure #412: Opioid Treatment Agreement: Documented signed opioid trtmnt agreemnt min once during opioid trtmnt Measure #408: Opioid Therapy Follow-up Evaluation: Patient had f/u eval minimum every 3 months during opioid therapy Measure #317: Preventitive Care & Scrn High Bld Press & F/U: Pre-hypertensive or hypertensive BP documented, pt will f/u with PCP Measure #128: Body Mass Index (BMI) Screening & Follow-up: BMI documented ABOVE normal parameters - f/u documented Measure #131: Pain Assessment & Follow-up: Pain positive & plan documented, Follow-up scheduled Measure #431: Unhealthy Alcohol Use Preventative Care & Scrn: Patient not identified as an unhealthy alcohol user PQRS Narrative: Smoking Status Current every day smoker Narcotic Agreement Date Signed 05/15/17 Hx Alcohol Use (MH) No Home Medications: Ambulatory Orders Ascorbic Acid [Vitamin C] 500 mg PO DAILY 08/14/14 Aspirin 81 mg PO HS 08/14/14 Cholecalciferol [Vitamin D3] 5,000 unit PO BID 08/14/14 Hydroxychloroquine Sulfate [Plaquenil] 200 mg PO BID 08/14/14 Levothyroxine Sodium [Synthroid] 50 mcg PO DAILY 08/14/14 Metoprolol Tartrate [Lopressor] 50 mg PO BID 08/14/14 Multivit with Calcium,Iron,Min [Women's Daily Multivitamin] 1 tab PO DAILY 08/14/14 Niacin 500 mg PO HS 08/14/14 Omeprazole [PriLOSEC] 40 mg PO BID 08/14/14 Simethicone [Gas-X] 125 mg PO BID 08/14/14 Womans Laxative 1 tab PO DAILY PRN 08/14/14 cloNIDine HCL [Catapres] 0.2 mg PO HS 08/14/14 diphenhydrAMINE [Benadryl] 50 mg PO HS PRN 08/14/14 Docusate [Colace] 100 mg PO HS PRN 10/21/14 Pramipexole [Mirapex] 0.5 mg PO HS 10/21/14 Atorvastatin [Lipitor] 10 mg PO HS 06/27/16 Max-Freeze 1 spray TOPICAL BID 02/23/17 Melatonin 10 mg PO HS 02/23/17 Nystatin 100,000 Unit/gm Powd [Mycostatin Powder] 1 applic TOPICAL TID PRN 02/23/17 Prilocaine,Lidocaine,Topiramat 1 dose TOPICAL BID 02/23/17 predniSONE 5 mg PO DAILY PRN 02/23/17 Intrathecal Opioid Pump 1 implant INTRATHECA CONTINUOUS 06/14/17 Potassium/Magnesium 250mg 1 tab PO HS 08/01/18 Cannabidiol (Cbd) Extract [Epidiolex] 1 applicate PO BID 08/20/18 Cyclobenzaprine [Flexeril] 10 mg PO BID 08/20/18 Dabigatran [Pradaxa] 75 mg PO BID 08/20/18 Diclofenac Sodium Gel [Voltaren Gel] 4 gm TOPICAL BID 08/20/18 Loperamide HCl [Imodium A-D] 2 mg PO DAILY PRN 08/20/18 Losartan Potassium [Cozaar] 100 mg PO DAILY 08/20/18 clonazePAM [KlonoPIN] 0.5 mg PO HS 08/20/18 Gabapentin [Neurontin] 300 mg PO BID 10/03/18 amLODIPine [Norvasc] 5 mg PO DAILY 10/03/18 oxyCODONE-APAP 5-325MG [Percocet 5-325 mg] 1 tab PO Q6HR PRN 10/03/18 Controlled Substance Measures - Controlled Substance Measures Is patient prescribed a controlled substance at discharge?: Yes When asked, does pt state using other controlled substances?: No If prescribed controlled substance>3 days was MAPS reviewed?: Yes If Rx opioid, was Start Talking consent form obtained?: Yes If opioid is for acute pain is fill amount 7 days or less?: No Was information provided regarding opioid addiction?: Yes
[2018-12-19 18:41] LABS: ALT 18 U/L (8-44); AST 16 U/L (13-35); African American GFR (CKD) 113.2 (60.0-200.0); Albumin/Globulin Ratio 2.44 (1.60-3.17); Alkaline Phosphatase 129 U/L (41-126); C Reactive Protein <0.4 mg/dL (0.0-0.8); Calcium 8.9 mg/dL (8.7-10.3); Carbon Dioxide 26.3 mmol/L (21.6-31.8); Chloride 111 mmol/L (96-109); Globulin 1.8 g/dL (1.6-3.3); Glucose 107 mg/dL (70-110); Potassium 3.6 mmol/L (3.5-5.5); Sodium 148 mmol/L (135-145); Total Bilirubin 0.3 mg/dL (0.3-1.2); Total Protein 6.2 g/dL (6.2-8.2)
== END | disposition home or self-care (01) ==
LOC: LABWHC1 12:06
PROVIDERS: ATTEND Internal Medicine Rheumatology
DX: M06.4 Inflammatory polyarthropathy (principal); Z79.899 Other long term (current) drug therapy
CPT/HCPCS: 36415; 80053; 85025; 85652; 86140

== ENCOUNTER → 2019-02-28 | Outpatient (CLI) | payer MEDICARE ==
[2019-02-28 13:37] VITALS: BP 166/84; PULSE 80; RESP 16
--- NOTE | 2019-02-28 14:10 | P.PAINPG ---
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, patient was on intrathecal opioid treatment, and patient wished to wean herself off intrathecal pain medication, as she wishes to continue to use CBD oil, for this reason we are weaning her off all pain medication, currently she is on intrathecal normal saline infusion, and she is using Percocet 5/325 twice a day and Neurontin 300 mg twice a day, Flexeril 10 mg twice a day, Voltaren gel, she denies any side effect of the medication she denies any excessive drowsiness, sleepiness and she denies any withdrawal symptoms, she continued to use CBD oil, and she reported that the current treatment helping her to control her pain, she reported that increased pain since we decreased the Percocet dose last visit, but she is willing to continue on the same dose, and currently patient getting intrathecal saline(the intrathecal pump filled with saline and she is getting the minimum dose of normal saline intrathecally ) Her pain is rated as 4/10 today, and her goal is 4/10, primarily located in right upper back, described as a burning and pulling, it does radiate to entire back. She continues to do soft yoga and is currently working on quitting smoking, she is down from 1.5 packs per day to half pack a day. Review of systems is negative for chest pain, shortness of breath, new onset weakness, numbness/tingling, abdominal pain, malaise, fever, night sweats, chills, homicidal or suicidal ideation, or bowel or bladder incontinence. She does report intermittent sweating, unrelated to time of day. Objective - Exam Physical exam: Vitals: Reviewed in EMR GENERAL: Well appearing, in no acute distress PSYCH: Mood and affect is appropriate. Awake, alert, and oriented SKIN: Skin color, texture, turgor normal, no rashes or lesions HEENT: Normocephalic, atraumatic. EOM intact CV: No pedal edema RESP: Respirations are unlabored, no audible wheezing GI: Abdomen non-distended MUSCULOSKELETAL: Diffuse tenderness to palpation along entire back Extremities: Peripheral joint ROM is full and pain free without obvious instability or laxity in all four extremities. No edema or skin discolorations noted. Gait: Gait is normal NEUR: Cranial nerves are grossly intact Assessment and Plan Assessment and plan= Failed back surgery syndrome and lumbar area, Chronic and current use of high-risk medication/opioid. Patient currently uses CBD oil and we are weaning her off opioid medications Patient has intrathecal pump, which is currently filled with normal saline, which is running at minimal setting. Pump was interrogated today, volume remaining is 18.8 mL's. Percocet reduced from 5/325 every 12 hours to 5/325 mg daily #30, no refills. Neurontin reduced from 300 mg 2 times a day to 300 mg daily at bedtime, #30 no refills. Continue Flexeril 10 mg twice a day dispense 60 with 1 refill and voltaren 1% gel dispense 1 tube with one refillwill request primary care physician to take over this prescription She also gets a prescription for compound cream, she has several refills on the screen and does not require a refill todaycream ingredients are dexamethasone, Calcipotriene, prilocaine 2.5%, lidocaine 2.5%, topiramate 1% and meloxicam 0.009%. [phone], Rx number [phone] request primary care physician to take over this prescription as well Patient was counseled on the importance of smoking cessation for 3 minutes as it pertains to general health as well as chronic pain. She was also counseled on the importance of exercise. She will follow up in the pain clinic in 1 year as she has the intrathecal pain pumptentative plan will be to remove pump at that point, provided she is still doing well with CBD oil. Time with Patient: Less than 30 PQRS Measure Charge Sheet Measure #130: Documentation of Current Meds in Medical Chart: Patient's medications documented in chart Measure #226: Tobacco Use: Screen & Cessation Intervention: Pt screened for tobacco use AND intervention given Measure #111: Pneumonia Vaccination: Pneumococcal vaccine NOT administered or previously given Measure #47: Advance Care Plan: Advance care planning discussed & documented, pt chose/unable to give Measure #412: Opioid Treatment Agreement: Documented signed opioid trtmnt agreemnt min once during opioid trtmnt Measure #408: Opioid Therapy Follow-up Evaluation: Patient had f/u eval minimum every 3 months during opioid therapy Measure #317: Preventitive Care & Scrn High Bld Press & F/U: Pre-hypertensive or hypertensive BP documented, pt will f/u with PCP Measure #128: Body Mass Index (BMI) Screening & Follow-up: BMI documented ABOVE normal parameters - f/u documented Measure #131: Pain Assessment & Follow-up: Pain positive & plan documented, Follow-up scheduled Measure #431: Unhealthy Alcohol Use Preventative Care & Scrn: Patient not identified as an unhealthy alcohol user PQRS Measure Charge Sheet Measure #130: Documentation of Current Meds in Medical Chart: Patient's medications documented in chart Measure #226: Tobacco Use: Screen & Cessation Intervention: Pt screened for tobacco use AND intervention given Measure #111: Pneumonia Vaccination: Pneumococcal vaccine administered or previously received Measure #47: Advance Care Plan: Advance care planning discussed & documented, pt chose/unable to give Measure #412: Opioid Treatment Agreement: Documented signed opioid trtmnt agreemnt min once during opioid trtmnt Measure #408: Opioid Therapy Follow-up Evaluation: Patient had f/u eval minimum every 3 months during opioid therapy Measure #317: Preventitive Care & Scrn High Bld Press & F/U: Pre-hypertensive or hypertensive BP documented, pt will f/u with PCP Measure #128: Body Mass Index (BMI) Screening & Follow-up: BMI documented within normal parameters Measure #131: Pain Assessment & Follow-up: Pain positive & plan documented, Follow-up scheduled Measure #431: Unhealthy Alcohol Use Preventative Care & Scrn: Patient not identified as an unhealthy alcohol user PQRS Narrative: Smoking Status Current every day smoker Narcotic Agreement Date Signed 05/15/17 Pain Intensity [Right Upper 4 Back] Scale Used Numeric (1 - 10) Hx Alcohol Use (MH) No Home Medications: Ambulatory Orders Ascorbic Acid [Vitamin C] 500 mg PO DAILY 08/14/14 Aspirin 81 mg PO HS 08/14/14 Cholecalciferol [Vitamin D3] 5,000 unit PO BID 08/14/14 Hydroxychloroquine Sulfate [Plaquenil] 200 mg PO BID 08/14/14 Levothyroxine Sodium [Synthroid] 50 mcg PO DAILY 08/14/14 Metoprolol Tartrate [Lopressor] 50 mg PO BID 08/14/14 Multivit with Calcium,Iron,Min [Women's Daily Multivitamin] 1 tab PO DAILY 08/14/14 Niacin 500 mg PO HS 08/14/14 Omeprazole [PriLOSEC] 40 mg PO BID 08/14/14 Simethicone [Gas-X] 125 mg PO BID 08/14/14 Womans Laxative 1 tab PO DAILY PRN 08/14/14 cloNIDine HCL [Catapres] 0.2 mg PO HS 08/14/14 diphenhydrAMINE [Benadryl] 50 mg PO HS PRN 08/14/14 Docusate [Colace] 100 mg PO HS PRN 10/21/14 Pramipexole [Mirapex] 0.5 mg PO HS 10/21/14 Atorvastatin [Lipitor] 10 mg PO HS 06/27/16 Max-Freeze 1 spray TOPICAL BID 02/23/17 Melatonin 10 mg PO HS 02/23/17 Nystatin 100,000 Unit/gm Powd [Mycostatin Powder] 1 applic TOPICAL TID PRN 02/23/17 Prilocaine,Lidocaine,Topiramat 1 dose TOPICAL BID 02/23/17 predniSONE 5 mg PO DAILY PRN 02/23/17 Intrathecal Opioid Pump 1 implant INTRATHECA CONTINUOUS 06/14/17 Potassium/Magnesium 250mg 1 tab PO HS 08/01/18 Cannabidiol (Cbd) Extract [Epidiolex] 1 applicate PO BID 08/20/18 Cyclobenzaprine [Flexeril] 10 mg PO BID 08/20/18 Dabigatran [Pradaxa] 75 mg PO BID 08/20/18 Diclofenac Sodium Gel [Voltaren Gel] 4 gm TOPICAL BID 08/20/18 Loperamide HCl [Imodium A-D] 2 mg PO DAILY PRN 08/20/18 Losartan Potassium [Cozaar] 100 mg PO DAILY 08/20/18 clonazePAM [KlonoPIN] 0.5 mg PO HS 08/20/18 Gabapentin [Neurontin] 300 mg PO BID 10/03/18 amLODIPine [Norvasc] 5 mg PO DAILY 10/03/18 oxyCODONE-APAP 5-325MG [Percocet 5-325 mg] 1 tab PO Q6HR PRN 10/03/18 Controlled Substance Measures - Controlled Substance Measures Is patient prescribed a controlled substance at discharge?: Yes When asked, does pt state using other controlled substances?: Yes If prescribed controlled substance>3 days was MAPS reviewed?: Yes If Rx opioid, was Start Talking consent form obtained?: Yes If opioid is for acute pain is fill amount 7 days or less?: No Was information provided regarding opioid addiction?: Yes
== END | disposition home or self-care (01) ==
LOC: PNWHC3 13:08
PROVIDERS: ATTEND Anesthesiology
DX: G89.29 Other chronic pain (principal); M96.1 Postlaminectomy syndrome, not elsewhere classified; F17.200 Nicotine dependence, unspecified, uncomplicated; Z79.82 Long term (current) use of aspirin; Z79.899 Other long term (current) drug therapy
CPT/HCPCS: 99211

== ENCOUNTER → 2019-07-15 | Outpatient (CLI) | payer MEDICARE | END | disposition home or self-care (01) | LOC: LABWHC1 08:26 | PROVIDERS: ATTEND Nurse Practitioner Adult Health | DX: E03.9 Hypothyroidism, unspecified (principal); E55.9 Vitamin D deficiency, unspecified | CPT/HCPCS: 36415; 82306; 84443 ==

== ENCOUNTER → 2019-07-16 | Outpatient (CLI) | payer MEDICARE ==
[2019-07-16 09:53] LABS: Appearance,Urine Clear (Clear); Bacteria,Urine Rare /hpf; Bilirubin,Urine Negative (Negative); Blood,Urine Negative (Negative); Color,Urine Yellow; Glucose,Urine (UA) Negative (Negative); Hyaline Casts,Urine 12 /lpf (0-2); Ketones,Urine Negative (Negative); Leukocyte Esterase,Urine Small (Negative); Mucus,Urine Rare /hpf; Nitrite,Urine Negative (Negative); Protein,Urine Trace (Negative); RBC,Urine 1 /hpf (0-5); Specific Gravity,Urine 1.019 (1.001-1.035); Squamous Epithelial Cell,Urine <1 /hpf (0-4); WBC,Urine 2 /hpf (0-5)
[2019-07-16 09:56] LABS: Basophils # (A) 0.1 k/uL (0-0.2); Basophils % (A) 0 %; Eosinophils # (A) 0.2 k/uL (0-0.7); Eosinophils % (A) 2 %; HCT 47.6 % (34.0-46.0); HGB 15.3 gm/dL (11.4-16.0); Lymphocytes % (A) 17 %; MCH 31.9 pg (25.0-35.0); MCHC 32.2 g/dL (31.0-37.0); MCV 99.2 fL (80.0-100.0); Monocytes # (A) 0.6 k/uL (0-1.0); Monocytes % (A) 5 %; Neutrophils # (A) 8.6 k/uL (1.3-7.7); Neutrophils % (A) 74 %; Platelet Count 302 k/uL (150-450); RDW 13.4 % (11.5-15.5); WBC 11.7 k/uL (3.8-10.6)
[2019-07-16 12:14] LABS: Erythrocyte Sedimentation Rate 21 mm/hr (0-20)
[2019-07-16 17:20] LABS: ALT 21 U/L (8-44); AST 26 U/L (13-35); African American GFR (CKD) 90.9 (60.0-200.0); Albumin/Globulin Ratio 2.32 (1.60-3.17); Alkaline Phosphatase 112 U/L (41-126); BUN/Creat Ratio 18.75 Ratio (12.00-20.00); C Reactive Protein <0.4 mg/dL (0.0-0.8); Calcium 9.8 mg/dL (8.7-10.3); Chloride 108 mmol/L (96-109); Globulin 1.9 g/dL (1.6-3.3); Glucose 111 mg/dL (70-110); Non-African American GFR(CKD) 78.5 (60.0-200.0); Potassium 4.9 mmol/L (3.5-5.5); Sodium 142 mmol/L (135-145); Total Bilirubin 0.4 mg/dL (0.3-1.2); Total Protein 6.3 g/dL (6.2-8.2)
[2019-07-16 17:26] LABS: DNA Double-Stranded NEGATIVE (NEGATIVE)
== END | disposition home or self-care (01) ==
LOC: LABWHC1 08:39
PROVIDERS: ATTEND Internal Medicine Rheumatology
DX: M06.4 Inflammatory polyarthropathy (principal)
CPT/HCPCS: 36415; 80053; 81001; 85025; 85652; 86140; 86160; 86225

== ENCOUNTER → 2019-09-20 | Outpatient (CLI) | payer MEDICARE ==
--- NOTE | 2019-09-23 09:48 | MM ---
Reason for exam: screening (asymptomatic). Last mammogram was performed 1 year ago. History: Patient is postmenopausal and has history of endometrial cancer at age 28. Family history of breast cancer in maternal aunt and breast cancer in cousin. Took hormonal contraceptives for 11 years beginning at age 15. Physical Findings: A clinical breast exam by your physician is recommended on an annual basis and results should be correlated with mammographic findings. MG 3D Screening Mammo W/Cad Bilateral CC and MLO view(s) were taken. Prior study comparison: September 05, 2018, bilateral MG 3d screening mammo w/cad. August 28, 2017, bilateral MG screening mammo w CAD. The breast tissue is heterogeneously dense. This may lower the sensitivity of mammography. There is no discrete abnormality. No significant changes when compared with prior studies. ASSESSMENT: Benign, BI-RAD 2 RECOMMENDATION: Routine screening mammogram of both breasts in 1 year.
== END | disposition home or self-care (01) ==
LOC: RADMAMWWP 08:20
PROVIDERS: ATTEND Obstetrics & Gynecology
DX: Z12.31 Encounter for screening mammogram for malignant neoplasm of breast (principal)
CPT/HCPCS: 77063; 77067

== ENCOUNTER → 2020-01-20 | Outpatient (CLI) | payer MEDICARE | END | disposition home or self-care (01) | LOC: LABWHC1 10:37 | PROVIDERS: ATTEND Nurse Practitioner Adult Health | DX: Z20.828 Contact with and (suspected) exposure to other viral communicable diseases (principal) | CPT/HCPCS: U0003; C9803 ==

== ENCOUNTER → 2020-08-12 | Outpatient (CLI) | payer MEDICARE ==
[2020-08-12 11:51] VITALS: BP 151/78; PULSE 85; RESP 18; TEMP 98
--- NOTE | 2020-08-12 13:06 | P.PN ---
Subjective Progress Note Date: 08/12/20 This is a follow-up visit for this 65 years old female, with a history of failed back surgery syndrome and lumbar area, she had intrathecal pain pump placed several years ago, and for more than 1-1/2 years, and been on intrathecal saline, (we stoped intrathecal opioid infusion for more than one year ) patient wishes to wean herself off ,all the opioid medications , patient reported that since March 2019 she did not have any opiate, and she is currently on CBD oil , she reported that her pain is well managed with the CBD oil, she is not on any pain medication orally, and she wished to proceed with the removal of the intrathecal pain pump, patient will be scheduled to have it removed YASMINE. Physical Examinations : -Constitutiona : Cooperative , not in acute distress . -HEENT : nech : supple , no Lymphadenopathy , normal thyroid size . : eyes : no ptosis , no icterus, no photophobia . - neurologic : Cranial nerve II to XII intact , no focal neurological deffecit . -psychatric : alert , oriented X 3 , appropriate affect , intact judgment and insight . -Lymphatic : no Lymphadenopathy . - musculoskeltal : Lumber spine moter stegnth lower extremities ,thigh and legs 5/5 Right side , 5/5 Left side Assessment and plan=1-Faild back surgery syndrome lumbar area 2-intratheca pain pump placed several years ago, currently patient wishes not to have any intrathecal pain medication for this reason we can remove the pump as per patient wishes, patient understood the risks benefits and possible complications of the procedure including headache, infection, pain Objective - Vital Signs Vital signs: Vital Signs Temp 98.0 F 08/12/20 11:50 Pulse 85 08/12/20 11:50 Resp 18 08/12/20 11:50 BP 151/78 08/12/20 11:50 Pulse Ox 96 08/12/20 11:50
== END ==
LOC: PNWHC3 11:13
PROVIDERS: ATTEND Specialist
DX: M96.1 Postlaminectomy syndrome, not elsewhere classified (principal); Z97.8 Presence of other specified devices; Z88.5 Allergy status to narcotic agent; Z88.8 Allergy status to other drugs, medicaments and biological substances; Z91.011 Allergy to milk products; Z91.040 Latex allergy status
CPT/HCPCS: 99211

== ENCOUNTER → 2020-09-22 | Outpatient (CLI) | payer MEDICARE ==
--- NOTE | 2020-09-23 10:18 | MM ---
Reason for exam: screening (asymptomatic). Last mammogram was performed 1 year ago. History: Patient is postmenopausal and has history of endometrial cancer at age 28. Family history of breast cancer in maternal aunt and breast cancer in cousin. Took hormonal contraceptives for 11 years beginning at age 15. Physical Findings: A clinical breast exam by your physician is recommended on an annual basis and results should be correlated with mammographic findings. MG 3D Screening Mammo W/Cad Bilateral CC and MLO view(s) were taken. Prior study comparison: September 20, 2019, bilateral MG 3d screening mammo w/cad. September 05, 2018, bilateral MG 3d screening mammo w/cad. The breast tissue is heterogeneously dense. This may lower the sensitivity of mammography. There is no discrete abnormality. No significant changes when compared with prior studies. ASSESSMENT: Negative, BI-RAD 1 RECOMMENDATION: Routine screening mammogram of both breasts in 1 year.
== END | disposition home or self-care (01) ==
LOC: RADMAMWWP 07:15
PROVIDERS: ATTEND Obstetrics & Gynecology
DX: Z12.31 Encounter for screening mammogram for malignant neoplasm of breast (principal); Z78.0 Asymptomatic menopausal state; Z80.3 Family history of malignant neoplasm of breast
CPT/HCPCS: 77063; 77067

== ENCOUNTER 2020-12-25 11:32 | Day surgery (SDC) | payer MEDICARE ==
[2020-12-24 08:40] VITALS: BMI 22.6
[~2020-12-25 11:32] MED LIST changes: +DEXAMETHASONE SOD PHOSPHATE 4 MG/ML 1 ML VIAL IV ONE; +MIDAZOLAM 2 MG/2 ML VIAL IV PRN; +ONDANSETRON 4 MG/2 ML VIAL IVP ONE; +SCOPOLAMINE 1.5MG/72HR PATCH TRANSDERM ONE; -ceFAZolin 1,000 MG in DEXTROSE/WATER 1 50ML.BAG IVPB STA; +fentaNYL (PF) 50 MCG/ML 2 ML AMP IV PRN
[2020-12-25 11:47] VITALS: RESP 16; TEMP 97.4
[2020-12-25] MEDS ORDERED: fentaNYL (PF) 50 MCG/ML 2 ML AMP ONE (13:02)
[2020-12-25] MEDS ORDERED: MIDAZOLAM 2 MG/2 ML VIAL ONE (13:02)
[2020-12-25] MEDS ORDERED: KETAMINE 10 MG/ML 20 ML VIAL ONE (13:02)
[2020-12-25] MEDS ORDERED: PROPOFOL 10 MG/ML 20 ML VIAL IV ONE (13:02)
[2020-12-25] MEDS ORDERED: LIDOCAINE 1% INJ 10MG/ML (20 ML MDV) ONE (13:02)
[2020-12-25] MEDS ORDERED: BUPIVACAINE (PF) 0.25% 30 ML VIAL SQ ONE (13:19)
[2020-12-25 14:20] VITALS: BP 169/90; PULSE 90
--- NOTE | 2020-12-25 14:27 | P.PCN ---
Date of Procedure: 12/25/20 Procedure(s) Performed: OPERATION: Removal of programmable intrathecal pain pump PREOPERATIVE DIAGNOSES: 1. Chronic pain syndrome, 2. failed back surgery syndrome lumbar area 3. Patient desires to remove intrathecal pain pump POSTOPERATIVE DIAGNOSES: Same as preoperative diagnosis. ANESTHESIA: Monitored anesthesia care as per anesthesia department CONDITION: Stable. Estimated blood loss =5 ML Description of the procedure; This is 65 years MALE who had chronic pain syndrome secondary to failed back surgery syndrome lumbar area, patient had intrathecal pain pump implanted several years ago, and last year she started using CBD old and her pain was controlled with the CBD oil, patient wishes to remove the intrathecal pain pump and she is currently on intrathecal saline infusion, and patient was getting normal saline infusion for more than one year, patient very satisfied with the result of the treatment with the CBD only, and she reported that her pain level is 0/10, risk and benefit of the procedure, including but not limited to risk of infection ,and bleeding, discussed with the patient and she agreed with the preceding, patient taken to the operating room placed in supine position then after induction of anesthesia the abdomen area prepped draped in the standard fashion , after the antibiotic was given 2 g of Ancef was given intravenously, and incision was made and the location of the pump in the right lower quadrant, after infiltration of skin and subcutaneous tissue Marcaine 0.25% 10 ML injected and then after that incision done on the dissection done in the fascia and then have access to the pump, and then the pump was removed and disconnected from the connector, the intrathecal catheter was freed , and there was free flow of the cerebrospinal fluid, and after that I put several ties using 0 silk around the catheter , to block any cerebrospinal fluid leak, then after that the catheter was secured to the fascia, using 0 silk tie, then after that the fascia was closed using 3-0 Vicryl sutures, and cane was closed using Monocryl 4.0, then the dressing applied, patient tolerated the procedure well without any complication, patient taken to recovery room and discharged home in stable condition and she will follow up in the pain clinic in 1 week
== END 2020-12-25 14:31 | disposition home or self-care (01) ==
LOC: OR 11:32
PROVIDERS: ATTEND Specialist
DX: G89.4 Chronic pain syndrome (principal)
CPT/HCPCS: 62365; J2250; J1100; J0690; J2405; J2001; J3010; J2704

== ENCOUNTER → 2021-01-04 | Outpatient (CLI) | payer MEDICARE ==
[2021-01-04 14:36] VITALS: BP 188/84; PULSE 104; RESP 18; TEMP 98.1
--- NOTE | 2021-01-04 14:59 | P.PN ---
Progress Note - Text Progress Note Date: 01/04/21 Assist for all visits for this 65 years old female with a chronic history of severe low back pain she is diagnosed with failed back surgery syndrome lumbar area, she had intrathecal pain pump for several years and 10 days ago I removed the intrathecal pain pump, as per patient's request because she wants to use CBD oil , instead of the pain medication intrathecal, patient here today to check on her incision, patient denies any fever or night sweats she denies any discharge and the incision healed appropriately there is no erythema and no swelling no discharge, patient doing very well and she will follow up in the pain clinic when necessary, he denies any motor or sensory deficits.
== END ==
LOC: PNWHC3 14:02
PROVIDERS: ATTEND Specialist
DX: M96.1 Postlaminectomy syndrome, not elsewhere classified (principal); F17.200 Nicotine dependence, unspecified, uncomplicated; Z91.040 Latex allergy status; Z88.8 Allergy status to other drugs, medicaments and biological substances; Z88.6 Allergy status to analgesic agent; Z91.011 Allergy to milk products
CPT/HCPCS: 99211

== ENCOUNTER → 2021-03-31 | Outpatient (CLI) | payer MEDICARE ==
[2021-03-31 14:11] LABS: Basophils # (A) 0.04 X 10*3/uL (0.00-0.10); Basophils % (A) 0.6 %; Eosinophils # (A) 0.16 X 10*3/uL (0.04-0.35); Eosinophils % (A) 2.4 %; HCT 44.7 % (37.2-46.3); Immature Grans, Automated 0.6 %; Lymphocytes # (A) 1.75 X 10*3/uL (0.90-5.00); Lymphocytes % (A) 26.2 %; MCH 29.1 pg (27.0-32.0); MCHC 31.3 g/dL (32.0-37.0); MCV 92.9 fL (80.0-97.0); Mean Platelet Volume 10.5 fL (9.5-12.2); Monocytes # (A) 0.65 X 10*3/uL (0.20-1.00); Monocytes % (A) 9.7 %; NRBC Per 100 WBC 0 /100 WBCS (0.0-0.0); Neutrophils # (A) 4.05 X 10*3/uL (1.80-7.70); Neutrophils % (A) 60.5 %; Platelet Count 304 X 10*3/uL (140-440); RBC 4.81 X 10*6/uL (4.10-5.20); WBC 6.69 X 10*3/uL (4.50-10.00)
[2021-03-31 14:49] LABS: Erythrocyte Sedimentation Rate 18 mm/Hr (0-30)
[2021-03-31 23:00] LABS: ALT 18 U/L (8-44); AST 13 U/L (13-35); African American GFR (CKD) 110.4 (60.0-200.0); Albumin 4.3 g/dL (3.8-4.9); Albumin/Globulin Ratio 1.81 (1.60-3.17); Alkaline Phosphatase 113 U/L (41-126); BUN/Creat Ratio 26.73 Ratio (12.00-20.00); Blood Urea Nitrogen 16.6 mg/dL (9.0-27.0); Calcium 9.5 mg/dL (8.7-10.3); Carbon Dioxide 18.3 mmol/L (20.0-27.5); Chloride 108 mmol/L (96-109); Chol/HDL Ratio 3.28 Ratio; Globulin 2.4 g/dL (1.6-3.3); Glucose 125 mg/dL (70-110); LDL Cholesterol,Calculated 86.3 mg/dL (0.0-131.0); Non-African American GFR(CKD) 95.2 (60.0-200.0); Potassium 4.7 mmol/L (3.5-5.5); Sodium 144 mmol/L (135-145); Total Bilirubin <0.15 mg/dL (0.30-1.20); Total Protein 6.6 g/dL (6.2-8.2)
[2021-03-31 23:31] LABS: Folate, Serum >20.00 ng/mL (4.40-31.00)
[2021-04-01 01:19] LABS: DNA Double-Stranded NEGATIVE (NEGATIVE)
== END | disposition home or self-care (01) ==
LOC: LABWHC1 10:10
PROVIDERS: ATTEND Internal Medicine
DX: I10 Essential (primary) hypertension (principal); E03.9 Hypothyroidism, unspecified; M32.9 Systemic lupus erythematosus, unspecified
CPT/HCPCS: 36415; 80053; 80061; 82306; 82607; 82746; 84439; 84443; 85025; 85652; 86038; 86160; 86225

== ENCOUNTER → 2021-12-14 | Outpatient (CLI) | payer MEDICARE ==
[2021-12-14 14:51] LABS: ALT 20 U/L (8-44); AST 16 U/L (13-35); African American GFR (CKD) 104.8 (60.0-200.0); Albumin 4.4 g/dL (3.8-4.9); Albumin/Globulin Ratio 1.76 (1.60-3.17); Alkaline Phosphatase 94 U/L (41-126); BUN/Creat Ratio 25.32 Ratio (12.00-20.00); Blood Urea Nitrogen 17.8 mg/dL (9.0-27.0); Calcium 9.8 mg/dL (8.7-10.3); Carbon Dioxide 24.6 mmol/L (20.0-27.5); Chloride 108 mmol/L (96-109); Chol/HDL Ratio 4.18 Ratio; Globulin 2.5 g/dL (1.6-3.3); Glucose 111 mg/dL (70-110); LDL Cholesterol,Calculated 118.4 mg/dL (0.0-131.0); Non-African American GFR(CKD) 90.5 (60.0-200.0); Potassium 4.4 mmol/L (3.5-5.5); Sodium 145 mmol/L (135-145); Total Protein 6.9 g/dL (6.2-8.2); VLDL Calculation 15.54 mg/dL (5.00-40.00)
[2021-12-14 15:20] LABS: Basophils # (A) 0.03 X 10*3/uL (0.00-0.10); Basophils % (A) 0.5 %; Eosinophils # (A) 0.13 X 10*3/uL (0.04-0.35); Eosinophils % (A) 2.2 %; HCT 41.9 % (37.2-46.3); HGB 13.6 g/dL (12.0-15.0); Immature Grans, Automated 0.5 %; Lymphocytes # (A) 1.84 X 10*3/uL (0.90-5.00); Lymphocytes % (A) 30.5 %; MCH 30.3 pg (27.0-32.0); MCHC 32.5 g/dL (32.0-37.0); MCV 93.3 fL (80.0-97.0); Monocytes # (A) 0.55 X 10*3/uL (0.20-1.00); Monocytes % (A) 9.1 %; NRBC Per 100 WBC 0 /100 WBCS (0.0-0.0); Neutrophils # (A) 3.46 X 10*3/uL (1.80-7.70); Neutrophils % (A) 57.2 %; Platelet Count 339 X 10*3/uL (140-440); RBC 4.49 X 10*6/uL (4.10-5.20); RDW 13.1 % (11.5-14.5); WBC 6.04 X 10*3/uL (4.50-10.00)
== END | disposition home or self-care (01) ==
LOC: LABWHC1 07:55
PROVIDERS: ATTEND Internal Medicine
DX: I10 Essential (primary) hypertension (principal); E03.9 Hypothyroidism, unspecified; M19.90 Unspecified osteoarthritis, unspecified site
CPT/HCPCS: 36415; 80053; 80061; 82306; 83036; 84439; 84443; 85025

== ENCOUNTER → 2022-02-21 | Outpatient (CLI) | payer MEDICARE ==
[2022-02-21 14:54] LABS: Chol/HDL Ratio 3.42 Ratio; LDL Cholesterol,Calculated 87.5 mg/dL (0.0-131.0); VLDL Calculation 18.74 mg/dL (5.00-40.00)
== END | disposition home or self-care (01) ==
LOC: LABWHC1 09:02
PROVIDERS: ATTEND Nurse Practitioner Adult Health
DX: I73.9 Peripheral vascular disease, unspecified (principal)
CPT/HCPCS: 36415; 80061

== ENCOUNTER → 2022-07-14 | Outpatient (CLI) | payer MEDICARE ==
--- NOTE | 2022-07-14 08:44 | CTL ---
EXAMINATION TYPE: CT Low Dose Lung DATE OF EXAM ORDERED: 07/14/2022 HISTORY: Z87.891 former smoker. Lung cancer screening CT DLP: 82.[address] CTDI: 2.4 mGy Automated exposure control for dose reduction was used. SCREENING VISIT: First screening visit COMPARISON: CT chest abdomen pelvis 08/01/2018 TECHNIQUE: Low dose computed tomography scan was performed through the chest at 1 mm thick sections a nd reconstructed images in multiple planes at 1 mm and [address] DIAGNOSTIC QUALITY: Satisfactory FINDINGS: LUNG NODULES: Stable right upper lobe 3.5 mm pulmonary nodule (series 4, image 62). Stable right upper lobe pleural -based 3 mm pulmonary nodule (series 4, image 66). Pleural-based right lower lobe 1.3 cm pulmonary no dule (series 4, image 180). This has increased in size from prior examination when it measured up to 1.0 cm in 2019. Lingular calcified granuloma. LUNGS: COPD: Severity: None Fibrosis: Severity: None Lymph nodes: Calcified mediastinal and left hilar lymph nodes. Other findings: Posterior right upper lobe bulla redemonstrated. RIGHT PLEURAL SPACE: Effusion: None Calcification: None Thickening: None Pneumothorax: None LEFT PLEURAL SPACE: Effusion: None Calcification: None Thickening: None Pneumothorax: None HEART: Heart Size: Normal Coronary Calcification: Moderate Pericardial Effusion: None OTHER FINDINGS: Upper abdomen: Post cholecystectomy changes. Bony thorax: None Supraclavicular region: None Other: None IMPRESSION: 1. Few stable pulmonary nodules dating back to 2019 with marginal increase in size of a pleural-base d right lower lobe 1.3 cm pulmonary nodule. No new pulmonary nodules. 2. Sequelae of prior granulomatous disease. CT LUNG RAD AND CT CHEST RECOMMENDATION: Lung-Rad 4B or 4X Very Suspicious: Follow-up Chest CT with o r without contrast or PET/CT and/or tissue sampling. PET/CT may be used when there is a > 8 mm solid component. S Modifier (other clinically significant findings): None
== END | disposition home or self-care (01) ==
LOC: RADCTMAIN 08:03
PROVIDERS: ATTEND Internal Medicine
DX: Z12.2 Encounter for screening for malignant neoplasm of respiratory organs (principal); R91.8 Other nonspecific abnormal finding of lung field; Z87.891 Personal history of nicotine dependence
CPT/HCPCS: 71271

== ENCOUNTER → 2022-09-27 | Outpatient (CLI) | payer MEDICARE ==
--- NOTE | 2022-09-27 12:20 | BD ---
EXAMINATION TYPE: Axial Bone Density DATE OF EXAM: 09/27/2022 CLINICAL HISTORY: 67 years old Female. ICD-10 CODE: DISORDER OF BONE [id number] Height: 62.5 Weight: 155.4 FRAX RISK QUESTIONS: Alcohol (3 or more units per day): no Family History (Parent hip fracture): no Glucocorticoids (More than 3mos): no History of Fracture in Adulthood: Wrist Secondary Osteoporosis: 1. Type 1 Diabetes: no 2. Hyperthyroidism: no 3. Menopause before 45: yes 4. Malnutrition: no 5. Chronic liver disease: no Rheumatoid Arthritis: yes Current Tobacco Use: no RISK FACTORS HISTORY OF: Hip Fracture (Right/Left): no Spine Fracture: no History of Wrist Fracture: Rt Wrist When: Age 41 Surgery to Spine/Hip(right/left)/Wrist (right/left): no Family History of Osteoporosis: no Active: yes Diet low in dairy products/other sources of calcium: no Postmenopausal woman: yes Take estrogen and/or progesterone medications: no Lost more than 2 inches in height since high school: yes Frequent falls: no Poor Health: no Hyperparathyroidism: no Adrenal Insufficiency: no MEDICATIONS: Prednisone or other steroids: no Thyroid Medications: Levothyroxin How Long: past 15 years Osteoporosis Medications: no Additional Medications: Cholesterol Meds, Bp Meds, Anxiety Meds, Reflux Meds, Calcium, Vit D, Folic A victoria, Magnesium, Additional History: EXAM MEASUREMENTS: Bone mineral densitometry was performed using the [employer] System. Bone mineral density as measured about the Lumbar spine is: ----- L1-L4(G/cm2): 1.219 T Score Values are as follows: ----- L1: -0.5 ----- L2: -0.4 ----- L3: 1.2 ----- L4: 0.4 ----- L1-L4: 0.3 Z Score Values are as follows: ----- L1: 0.9 ----- L2: 1.0 ----- L3: 2.6 ----- L4: 1.9 ----- L1-L4: 1.8 Bone mineral density has: decreased -4.2 % since study of: 09/05/2018 Bone mineral density about the R hip (g/cm2): 0.850 Bone mineral density about the L hip (g/cm2): 0.916 T Score values are as follows: -----R Neck: -1.6 -----L Neck: -0.5 -----R Total: -1.3 -----L Total: -0.7 Z Score values are as follows: -----R Neck: -0.2 -----L Neck: 0.9 -----R Total: -0.1 -----L Total: 0.4 Bone mineral density has: decreased -5.5 % since study of: 09/05/2018 FRAX%s: The graph provided illustrates a 15.4% chance for a major osteoporotic fx and a 1.9% chance f or the hips probability for fx in 10 years time. IMPRESSION: Osteopenia (T Score between -2.5 and -1). There is slightly increased risk of fracture and the patient may be considered for treatment. Re-Screen 2-5 years. NOTE: T-SCORE=SD OF THE YOUNG ADULT MEAN.
--- NOTE | 2022-09-28 15:24 | MM ---
Reason for Exam: Screening (asymptomatic). Last screening mammogram was performed 12 month(s) ago. Patient History: Menarche at age 12. First Full-Term at age 22. Left ovary removed at age 28. Hysterectomy at age 28. Postmenopausal. Patient has history of breast feeding. Hormonal Contraceptives, starting at age 15 for 11 years. Maternal cousin had breast cancer. Maternal aunt had breast cancer. Risk Values: Rosaura 5 year model risk: 1.6%. NCI Lifetime model risk: 5.9%. Prior Study Comparison: 09/20/2019 Bilateral Screening Mammogram, [facility]. 09/22/2020 Bilateral Screening Mammogram, [facility]. 09/24/2021 Bilateral MG 3D screening mammo w/cad, [facility]. Tissue Density: There are scattered fibroglandular densities. Findings: Analyzed By CAD. Pattern appears symmetrical and stable. No significant interval change is evident. Scattered benign calcifications are present bilaterally. No suspicious groups of microcalcifications, spiculated or lobular masses, architectural distortion or other secondary signs of malignancy are mammographically apparent. Overall Assessment: Benign, BI-RAD 2 Management: Screening Mammogram of both breasts in 1 year. A negative mammogram report should not preclude additional follow up of suspicious palpable abnormalities. Patient should continue monthly self breast exam. A clinical breast exam by your physician is recommended on an annual basis and results should be correlated with mammographic findings. Electronically signed and approved by: Brenden Rosario D.O. Radiologis
== END | disposition home or self-care (01) ==
LOC: RADMAMWWP 06:48
PROVIDERS: ATTEND Obstetrics & Gynecology
DX: Z12.31 Encounter for screening mammogram for malignant neoplasm of breast (principal); M85.851 Other specified disorders of bone density and structure, right thigh; Z78.0 Asymptomatic menopausal state; Z80.3 Family history of malignant neoplasm of breast
CPT/HCPCS: 77063; 77067; 77080

== ENCOUNTER → 2022-11-15 | Outpatient (CLI) | payer MEDICARE | END | disposition home or self-care (01) | LOC: LABWHC1 12:04 | PROVIDERS: ATTEND Psychiatry & Neurology Neurology | DX: M26.629 Arthralgia of temporomandibular joint, unspecified side (principal); M13.80 Other specified arthritis, unspecified site | CPT/HCPCS: 36415; 85652; 86038; 86431 ==

== ENCOUNTER → 2024-02-09 | Outpatient (CLI) | payer MEDICARE ==
--- NOTE | 2024-02-12 07:54 | MM ---
Reason for Exam: Screening (asymptomatic). Last mammogram was performed 1 year(s) and 5 month(s) ago. Patient History: Menarche at age 12. First Full-Term at age 22. Left ovary removed at age 28. Hysterectomy at age 28. Postmenopausal. Patient has history of breast feeding. Hormonal Contraceptives, starting at age 15 for 11 years. Maternal cousin had breast cancer. Maternal aunt had breast cancer. Risk Values: Rosaura 5 year model risk: 1.7%. NCI Lifetime model risk: 5.7%. Prior Study Comparison: 09/22/2020 Bilateral Screening Mammogram, [facility]. 09/24/2021 Bilateral MG 3D screening mammo w/cad, [facility]. 09/27/2022 Bilateral MG 3D screening mammo w/cad, [facility]. Tissue Density: There are scattered areas of fibroglandular density. Findings: Analyzed By CAD. Right breast: There is no suspicious group of microcalcifications or new suspicious mass. Left breast: There is no suspicious group of microcalcifications or new suspicious mass. Overall Assessment: Negative, BI-RAD 1 Management: Screening Mammogram of both breasts in [address] [facility] will attempt to contact patient to return for supplemental views and ultrasound if indicated. Patient should continue monthly self-breast exams. A clinical breast exam by your physician is recommended on an annual basis. This exam should not preclude additional follow-up of suspicious palpable abnormalities. Note on Rosaura scores and lifetime risk: 1. A Rosaura score greater than 3% is considered moderate risk. If this is the case, consider specialist referral to assess eligibility for a risk reducing agent. 2. If overall lifetime risk for the development of breast cancer is 20% or higher, the patient may qualify for future screening with alternating mammogram and breast MRI. [facility], , 02/12/2024 7:51 AM. Electronically signed and approved by: Lauro Crespo DO
== END | disposition home or self-care (01) ==
LOC: RADMAMWWP 07:03
PROVIDERS: ATTEND Family Medicine
DX: Z12.31 Encounter for screening mammogram for malignant neoplasm of breast (principal); Z90.721 Acquired absence of ovaries, unilateral; Z78.0 Asymptomatic menopausal state; Z80.3 Family history of malignant neoplasm of breast; R92.323 Mammographic fibroglandular density, bilateral breasts
CPT/HCPCS: 77063; 77067